=== PATIENT | female | born 1980 | race American Indian/Alaskan Native ===

== ENCOUNTER 2017-06-26 15:43 | Outpatient (CLI) | payer MEDICAID ==
[2017-06-26 15:59] LABS: BILIRUBIN,URINE NEGATIVE (NEGATIVE); GLUCOSE, URINE (UA) NEGATIVE (NEGATIVE); KETONES,URINE (UA) NEGATIVE (NEGATIVE); LEUKOCYTE ESTERASE, URINE NEGATIVE (NEGATIVE); NITRITE,URINE NEGATIVE (NEGATIVE); OCCULT BLOOD,URINE NEGATIVE (NEGATIVE); PH,URINE 6.5 PH (5.0-7.5); PROTEIN,URINE NEGATIVE (NEGATIVE); UROBILINOGEN,URINE 0.2 (NORMAL) E.U./dL (NORMAL)
[2017-06-26 16:01] LABS: BASOPHILS # (AUTO) 0.1 10^3/uL (0.0-0.1); BASOPHILS % (AUTO) 0.9 %; EOSINOPHILS # (AUTO) 0.1 10^3/uL (0.0-0.7); EOSINOPHILS % (AUTO) 1.3 %; HGB - HEMOGLOBIN 12.3 g/dL (12.0-16.0); LYMPHOCYTES # (AUTO) 2.1 10^3/uL (1.5-3.5); LYMPHOCYTES % (AUTO) 19.3 %; MEAN CORPUSCULAR HEMOGLOBIN 28.6 pg (27.0-31.0); MEAN CORPUSCULAR HGB CONC 33.4 g/dL (32.0-36.0); MEAN CORPUSCULAR VOLUME 85.8 fL (81.0-99.0); MEAN PLATELET VOLUME 7.1 fL (7.9-10.8); MONOCYTES # (AUTO) 0.7 10^3/uL (0.0-1.0); MONOCYTES % (AUTO) 6.7 %; NEUTROPHILS # (AUTO) 7.8 10^3/uL (1.5-6.6); NEUTROPHILS % (AUTO) 71.8 %; PLT - PLATELET COUNT 380 10^3/uL (130-450); RED BLOOD COUNT 4.31 10^6/uL (4.20-5.40); RED CELL DISTRIBUTION WIDTH 14.1 % (12.0-15.0); WHITE BLOOD COUNT 10.8 x10^3/uL (4.8-10.8)
[2017-06-26 16:03] LABS: CLARITY,URINE CLEAR (CLEAR)
[2017-06-26 16:06] LABS: BACTERIA,URINE Moderate /HPF (None Seen); RBC,URINE 0-5 /HPF (0-5); SQUAMOUS EPITHELIAL CELL,UR MOD Squamous (<= Few)
[2017-06-27 12:47] LABS: HIV AG/AB 4TH GEN NON-REACTIVE (NON-REACTIVE)
[2017-06-27 13:02] LABS: HEPATITIS C ANTIBODY NON-REACTIVE (NON-REACTIVE)
[2017-06-27 13:37] LABS: HEPATITIS B SURFACE ANTIGEN NON-REACTIVE (NON-REACTIVE)
== END 2017-06-26 15:44 | disposition home or self-care (01) ==
LOC: LAB 15:43
PROVIDERS: ATTEND Obstetrics & Gynecology
DX: Z36.9 Encounter for antenatal screening, unspecified (principal)
CPT/HCPCS: 36415; 81001; 81599; 85025; 86592; 86762; 86803; 86850; 86900; 86901; 87340; 87389

== ENCOUNTER 2017-07-04 07:12 | Outpatient (CLI) | payer MEDICAID ==
--- NOTE | 2017-07-04 15:17 | Ultrasound Report ---
OB ULTRASOUND: 07/04/2017 CLINICAL INDICATION: Late to care. TECHNIQUE: Real-time scanning was performed with freight representative static images obtained. LAST MENSTRUAL PERIOD: unknown Clinical Age: unknown US Age: 31 weeks 5 days EFW Hadlock: 1868 grams EFW% Hadlock: -- Heart Rate: 141 bpm EDC: unknown US EDC: 08/31/2017 BPD Hadlock: 31 weeks 6 days; Mean mm 79 HC Hadlock: 31 weeks 6 days; Mean mm 289 AC Hadlock: 32 weeks 4 days; Mean mm 285 FL Hadlock: 30 weeks 6 days; Mean mm 59 Presentation: cephalic. Placental Location: posterior. Cervical Length: 4.8 cm Amniotic Fluid: subjectively normal, MVP 4.6 cm FINDINGS There is a single viable intrauterine gestation, in cephalic presentation. heart rate is 141 BPM. The placenta is posterior, without evidence of previa. Amniotic fluid volume appears subjectively normal, with the deepest pocket of 4.6 cm. By size, the fetus measures 31 weeks 5 days (uncertain LMP). The following anatomic structures were visualized and appear normal: The intracranial contents, including the ventricles and posterior fossa; the lips and orbits; sagittal views of the spine; the heart, including 4 chamber view and right ventricular outflow tract, and diaphragm; the abdominal contents, including the stomach, the bilateral kidneys, and urinary bladder, as well as a normal 3 vessel cord insertion; 4 limbs. Imaging of the left ventricular outflow tract is limited by positioning and late dates. Transverse imaging of the spine is limited by positioning. 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 No free fluid or adnexal lesion is appreciated. IMPRESSION: SINGLE VIABLE INTRAUTERINE GESTATION, MEASURING 31 WEEKS 5 DAYS BY SIZE. SUBOPTIMAL VISUALIZATION OF THE LEFT VENTRICULAR OUTFLOW TRACT AND TRANSVERSE VIEWS OF THE SPINE, DUE TO LATE DATES AND POSITIONING. TD: 07/04/2017 12:32 TREVOR
== END 2017-07-04 07:13 | disposition home or self-care (01) ==
LOC: DI 07:12
PROVIDERS: ATTEND Obstetrics & Gynecology
DX: Z36.9 Encounter for antenatal screening, unspecified (principal)
CPT/HCPCS: 76811

== ENCOUNTER 2017-07-21 11:52 | Outpatient (CLI) | payer MEDICAID | END 2017-07-21 11:53 | disposition home or self-care (01) | LOC: LAB 11:52 | PROVIDERS: ATTEND Obstetrics & Gynecology | DX: Z36.9 Encounter for antenatal screening, unspecified (principal) | CPT/HCPCS: 36415 ==

== ENCOUNTER 2017-07-29 12:35 | Outpatient (CLI) | payer MEDICAID ==
--- NOTE | 2017-08-01 10:32 | Ultrasound Report ---
OB FOLLOWUP: 07/29/2017 CLINICAL INDICATION: Incomplete anatomy survey. COMPARISON: 07/04/2017 TECHNIQUE: Real-time scanning was performed with ambulatory service representative static images obtained. LAST MENSTRUAL PERIOD 11/24/2016 Clinical Age 35 weeks 2 days US Age 34 weeks 6 days EFW Hadlock 2394 g EFW% Hadlock 27% Heart Rate 141 bpm EDC 08/31/2017 US EDC 09/03/2017 BPD Hadlock 35 weeks 0 days; Mean mm 86.8 HC Hadlock 35 weeks 3 days; Mean mm 315.6 AC Hadlock 35 weeks 0 days; Mean mm 310.8 FL Hadlock 32 weeks 1 day; Mean mm 62.0 Presentation cephalic Placental Location posterior Cervical Length --- Amniotic Fluid 14.2 cm FINDINGS: There is a single viable intrauterine gestation, in cephalic presentation. heart rate is 141 BPM. The placenta is posterior, without evidence of previa. Amniotic fluid volume is normal, with an LENNOX of 14.2. By size, the fetus measures 34 weeks 6 days (35 weeks 2 days by previous office dating). Estimated weight by Hadlock method is 2394 grams. The left ventricular outflow tract and transverse views of the spine are well visualized, and appear normal. No free fluid or adnexal lesion is appreciated. IMPRESSION: SINGLE VIABLE INTRAUTERINE GESTATION, WITH EXPECTED GROWTH. UNREMARKABLE COMPLETION OF THE ANATOMIC SURVEY. MTDD
== END 2017-07-29 12:36 | disposition home or self-care (01) ==
LOC: DI 12:35
PROVIDERS: ATTEND Obstetrics & Gynecology
DX: Z36.2 Encounter for other antenatal screening follow-up (principal)
CPT/HCPCS: 76816

== ENCOUNTER 2017-07-31 08:00 | Outpatient (CLI) | payer MEDICAID | END 2017-07-31 23:59 | disposition home or self-care (01) | LOC: LAB.R 08:00 | PROVIDERS: ATTEND Obstetrics & Gynecology | DX: Z36.85 Encounter for antenatal screening for Streptococcus B (principal); Z3A.35 35 weeks gestation of pregnancy | CPT/HCPCS: 87081 ==

== ENCOUNTER 2017-07-31 13:40 | Outpatient (CLI) | payer MEDICAID ==
[2017-07-31 14:58] LABS: MEAN CORPUSCULAR HGB CONC 34.4 g/dL (32.0-36.0); MEAN CORPUSCULAR VOLUME 84.4 fL (81.0-99.0); MEAN PLATELET VOLUME 7.3 fL (7.9-10.8); RED BLOOD COUNT 4.13 10^6/uL (4.20-5.40); RED CELL DISTRIBUTION WIDTH 14.7 % (12.0-15.0)
[2017-07-31 15:26] LABS: HB2 TOTAL 13.1 g/dL; HEMOGLOBIN A1C 0.55 g/dL
== END 2017-07-31 13:41 | disposition home or self-care (01) ==
LOC: LAB 13:40
PROVIDERS: ATTEND Obstetrics & Gynecology
DX: Z36.9 Encounter for antenatal screening, unspecified (principal)
CPT/HCPCS: 36415; 82950; 83036

== ENCOUNTER 2017-08-13 05:10 | Outpatient (CLI) | payer MEDICAID ==
[2017-08-13 05:29] VITALS: BP 133/83
[2017-08-13 05:45] LABS: MUDS CUTOFF CONCENTRATIONS CUTOFF CONC BELOW:
[2017-08-13 05:48] LABS: BILIRUBIN,URINE NEGATIVE (NEGATIVE); GLUCOSE, URINE (UA) NEGATIVE (NEGATIVE); KETONES,URINE (UA) NEGATIVE (NEGATIVE); LEUKOCYTE ESTERASE, URINE NEGATIVE (NEGATIVE); NITRITE,URINE NEGATIVE (NEGATIVE); OCCULT BLOOD,URINE NEGATIVE (NEGATIVE); PROTEIN,URINE NEGATIVE (NEGATIVE); UROBILINOGEN,URINE 0.2 (NORMAL) E.U./dL (NORMAL)
[2017-08-13 05:59] LABS: AMPHETAMINE SCREEN,URINE NEGATIVE (NEGATIVE); BENZODIAZEPINES SCREEN, URINE NEGATIVE (NEGATIVE); COCAINE SCREEN URINE NEGATIVE (NEGATIVE); METHADONE SCREEN, URINE NEGATIVE (NEGATIVE); METHAMPHETAMINES SCREEN, URINE NEGATIVE (NEGATIVE); OPIATE SCREEN, URINE NEGATIVE (NEGATIVE); OXYCODONE SCREEN, URINE NEGATIVE (NEGATIVE); PROPOXYPHENE SCREEN, URINE NEGATIVE (NEGATIVE); TRICYCLIC ANTIDEPRESSANT,URINE NEGATIVE (NEGATIVE)
[2017-08-13 06:16] LABS: CLARITY,URINE CLEAR (CLEAR)
[2017-08-13 06:17] LABS: BACTERIA,URINE None Seen /HPF (None Seen); RBC,URINE 0-5 /HPF (0-5); SQUAMOUS EPITHELIAL CELL,UR MOD Squamous (<= Few)
== END 2017-08-13 06:55 | disposition home or self-care (01) ==
LOC: EMS 05:10 → FBP 05:11 → EMS 06:55
PROVIDERS: ATTEND Obstetrics & Gynecology
DX: O62.9 Abnormality of forces of labor, unspecified (principal); O34.219 Maternal care for unspecified type scar from previous cesarean delivery; N85.8 Other specified noninflammatory disorders of uterus; Z3A.37 37 weeks gestation of pregnancy
CPT/HCPCS: 80306; 81001; 87086; 99213

== ENCOUNTER 2017-08-25 13:34 | Outpatient (CLI) | payer MEDICAID ==
[2017-08-25 13:59] LABS: BASOPHILS # (AUTO) 0.1 10^3/uL (0.0-0.1); BASOPHILS % (AUTO) 0.9 %; EOSINOPHILS # (AUTO) 0.1 10^3/uL (0.0-0.7); EOSINOPHILS % (AUTO) 1.3 %; HGB - HEMOGLOBIN 12.4 g/dL (12.0-16.0); LYMPHOCYTES # (AUTO) 1.8 10^3/uL (1.5-3.5); LYMPHOCYTES % (AUTO) 20.4 %; MEAN CORPUSCULAR HEMOGLOBIN 29.1 pg (27.0-31.0); MEAN CORPUSCULAR HGB CONC 34.4 g/dL (32.0-36.0); MEAN CORPUSCULAR VOLUME 84.6 fL (81.0-99.0); MONOCYTES # (AUTO) 0.8 10^3/uL (0.0-1.0); MONOCYTES % (AUTO) 8.9 %; NEUTROPHILS # (AUTO) 5.9 10^3/uL (1.5-6.6); NEUTROPHILS % (AUTO) 68.5 %; PLT - PLATELET COUNT 277 10^3/uL (130-450); RED BLOOD COUNT 4.27 10^6/uL (4.20-5.40); RED CELL DISTRIBUTION WIDTH 15.3 % (12.0-15.0); WHITE BLOOD COUNT 8.6 x10^3/uL (4.8-10.8)
[2017-08-25 14:13] LABS: BILIRUBIN,URINE NEGATIVE (NEGATIVE); GLUCOSE, URINE (UA) NEGATIVE (NEGATIVE); KETONES,URINE (UA) NEGATIVE (NEGATIVE); LEUKOCYTE ESTERASE, URINE NEGATIVE (NEGATIVE); NITRITE,URINE NEGATIVE (NEGATIVE); OCCULT BLOOD,URINE NEGATIVE (NEGATIVE); PROTEIN,URINE NEGATIVE (NEGATIVE); UROBILINOGEN,URINE 0.2 (NORMAL) E.U./dL (NORMAL)
[2017-08-25 14:25] LABS: CLARITY,URINE CLEAR (CLEAR)
== END 2017-08-25 13:35 | disposition home or self-care (01) ==
LOC: LAB 13:34
PROVIDERS: ATTEND Obstetrics & Gynecology
DX: O34.219 Maternal care for unspecified type scar from previous cesarean delivery (principal)
CPT/HCPCS: 36415; 81003; 85025; 86850; 86900; 86901

== ENCOUNTER 2017-08-27 05:12 | Inpatient (IN) | payer MEDICAID ==
--- NOTE | 2017-08-25 13:50 | PREOP HISTORY & PHYSICAL ---
DATE OF SERVICE: 08/27/2017 Physician: Marquise Fisher MD DIAGNOSES 1. Gestation, 39 weeks. 2. Prior history of distress and resultant . 3. History of prior emergent section.Maternal Age 4. Advanced INTENDED PROCEDURE: Repeat section & bilateral tubal ligation / removal. HISTORY: The patient is a 37-year-old 10, para 7-0-2-7-6, who began care late at 30 weeks' gestation. Baseline ultrasound was on 07/04/2017 and compatible with 31 weeks 5 days' gestation, fixing the initial EDC at 08/31/2017. Within envelope of error, this corresponded with her LMP (11/09/2016), EDC of 08/16/2017. The patient's prior was delivered by emergent at [facility]. It was a resultant . BASELINE LABS: Blood type A positive, antibody screen negative. Mild anemia. CBC 10.8. RPR nonreactive. Rubella nonreactive. Hepatitis B surface antigen negative. HIV negative. Pap smear normal. HPV panel negative. GC, chlamydia negative. Glucola challenge test 134. [place] test negative for trisomy 21, 13, and 18. PAST MEDICAL HISTORY: The patient denies cardiovascular disease and past surgical history, other than a section and cholecystectomy. ALLERGIES: NONE. MEDICATIONS: vitamins with iron and supplemental iron. SOCIAL HISTORY: The patient is . Denies drug or alcohol use. Smokes approximately 1 pack per day, which she has tapered down to about 5 cigarettes a day. She does not follow a regular exercise or diet program. OCCUPATION: Unemployed. FAMILY HISTORY: Unknown. REVIEW OF SYSTEMS CONSTITUTIONAL: No recent illness, fatigues, fevers. HEENT: Negative. HEART: Negative. LUNGS: Negative. GI: Negative, other than mild constipation of . : Negative. MUSCULOSKELETAL: Negative. NEUROLOGIC: Negative. SKIN: Negative. PHYSICAL EXAMINATION GENERAL: Well groomed, bathed. VITAL SIGNS: Posted. HEENT: Poor dentition. NECK: Supple neck. No thyromegaly. LUNGS: Clear to auscultation. CARDIAC: Regular. No murmur, no gallop. ABDOMEN: No epigastric tenderness. Gravid uterus, appropriate size. heart tones heard. EXTERNAL GENITALIA: No lesions. VAGINA: No blood or discharge. CERVIX: 1 cm, slightly effaced. EXTREMITIES: Nonedematous. NEUROLOGIC: Grossly intact. Cranial nerves intact. Patellar reflexes 2+ and equal. SKIN: No open wounds noted. ASSESSMENT: The patient is a term , based on late ultrasound. Given her poor reproductive history, it is elected to perform section at 39 weeks instead of waiting for labor. Sterilization discussed in detail. She is aware of the permanent nature sterilization and the it is irreversible.. PLAN: Repeat lower segment transverse section with sterilization. Reviewed risks, benefits and alternatives. The patient is scheduled for next week. TD: 08/22/2017 20:36 [email or web address]
[2017-08-27] MEDS ORDERED: LACTATED RINGERS 1,000 ML IV ONE ×3 (05:42→08:06)
[2017-08-27] MEDS ORDERED: SODIUM CHLORIDE FLUSH 0.9% 10 ML SYRINGE ONE (05:43)
[2017-08-27] MEDS: LACTATED RINGERS 1,000 ML IV SCH ×3 (05:45→14:49)
[2017-08-27] MEDS ORDERED: ONDANSETRON 4 MG/2 ML VIAL IVP PRN (07:23)
[2017-08-27] MEDS ORDERED: SODIUM CHLORIDE FLUSH 0.9% 10 ML SYRINGE IVP PRN (07:23)
[2017-08-27] MEDS ORDERED: diphenhydrAMINE 25 MG CAPSULE PO PRN (07:23)
[2017-08-27] MEDS ORDERED: CITRIC ACID/SODIUM CITRATE 15 ML UDC PO ONE (07:34)
--- NOTE | 2017-08-27 07:34 | OPERATIVE REPORT ---
Operative Report - General Admit Date: 08/27/17 Pre-Op Diagnosis: 39 week plus gestation; planned repeat with tubal sterilization Procedure Performed: Repeat lower segment transverse section; bilateral tubal ligation via salpingectomy Post Op Diagnosis: Same - Procedure Note Primary Surgeon: Marquise Fisher MD Secondary Surgeon: Johanna Canales DO Anesthesia Provider: Brody Lin certified nurse buckle stapler Anesthesia Technique: Spinal Pathology: Tubes IV Fluids (mL): 700 Estimated Blood Loss (mL): 400 Urine Output (mL): 300 Drain/Tube Type: Other ([place] catheter) Complications: None
[2017-08-27] MEDS ORDERED: HYDROmorphone 1 MG/ML CARPUJECT IVP PRN (07:38)
--- NOTE | 2017-08-27 10:14 | OPERATIVE REPORT ---
DATE OF SERVICE: 08/27/2017 Physician: Marquise Fisher MD PREOPERATIVE DIAGNOSES 1. A 39-week gestation. 2. Prior sections. 3. Desires sterilization. 4. Late to care. POSTOPERATIVE DIAGNOSES 1. A 39-week gestation. 2. Prior sections. 3. Desires sterilization. 4. Late to care. 5. Nuchal cord x1. PLANNED PROCEDURES 1. Repeat lower segment transverse section. 2. Bilateral tubal ligation via salpingectomy. SURGEON: Marquise Fisher MD, FACOG PURCHASING OFFICER: Johanna Morillo DO, FACOG ANESTHESIA: Spinal. MILLING OPERATOR: Brody Lin, certified nurse zinc skimmer COMPLICATIONS: None. ESTIMATED BLOOD LOSS: 400 INTRAVENOUS FLUIDS: 700 URINE: 300 mL, clear. Bahena in place. FINDINGS: Living male infant was born weighing 7 lbs 4oz scoring Apgars of 9/9. There was a nuchal cord x1, which was not a factor in the delivery. There were no obvious congenital anomalies and responded well to stimulation. Tubes and ovaries appeared to be normal. The uterus had no fibroids or malformations. Placenta was expressed intact with 3-vessel cord. Clear, nonfoul amniotic fluid noted. TECHNIQUE: Prior to the surgery, I met the patient and her and reviewed the mechanics, risks and benefits. I also confirmed that they desired a tubal ligation and realized that it was irreversible. They strongly wanted repeat section with tubal ligation. [place] Medicaid tubal consent paperwork was signed. The patient came to the OR and was placed in the sitting position for spinal anesthetic. Spinal was uneventfully instilled. She was moved to supine. She was prepped and draped in a customary sterile fashion. Timeout procedure was done per protocol. The abdominal wall was uneventfully opened with a Pfannenstiel incision. Curvilinear hysterotomy was cut in the lower segment. On entry into the cavity, clear fluid spilled forth. Hot Mill Roller secured head with his right hand and with fundal pressure by banking assistant , the head was guided through the hysterotomy and laparotomy wound. Shoulder was delivered without difficulty. A nuchal cord was reduced. Oropharynx was thoroughly suctioned. Cord was doubly clamped and transected. Infant was brought to the warmer. The uterus was exteriorized. With fundal massage, the placenta was removed intact. Hysterotomy was closed in 2 layers with running sutures of 0 Vicryl. Abdominal cavity was doubly lavaged with warm normal saline. The tubes were then mobilized and tented away from the uterine body. Using LigaSure, the mesenteric tubal vessels were desiccated and divided. Both tubes were removed intact. We observed and there were no bleeding problems. The uterus was then placed back into the amniotic in the abdominal cavity. All wounds were inspected and found to be hemostatically secure. Abdominal peritoneum was closed with running stitch of 2-0 chromic. Rectus muscles were brought back into the midline with interrupted sutures of 0 Vicryl. The fascia was closed with a running suture of 0 Vicryl. Two small reinforcing stitches of 2-0 Vicryl were placed. Subcutaneous tissue was closed with interrupted sutures of 2-0 chromic. Skin was closed with Monocryl in a subcuticular stitch and then dressed with Dermabond. All sponge, needle and instrument counts were confirmed as correct. The patient was uneventfully aroused and taken to recovery room in stable condition. TD: 08/27/2017 10:12 TREVOR
[2017-08-27] MEDS: HYDROcod/ACETAM 5/325 MG TABLET PO PRN ×3 (10:31→18:17)
[2017-08-27] MEDS ORDERED: NALBUPHINE 20 MG/ML AMP IVP PRN (11:00)
[2017-08-27] MEDS ORDERED: MORPHINE 2 MG/ML CARPUJECT IVP PRN (11:00)
[2017-08-27] MEDS ORDERED: NALOXONE 0.4 MG/ML VIAL IVP PRN (11:00)
[2017-08-27] MEDS ORDERED: diphenhydrAMINE INJ 50 MG/ML VIAL IVP PRN (11:00)
[2017-08-27] MEDS: DOCUSATE SODIUM 250 MG CAPSULE PO SCH ×2 (12:13→14:53)
[2017-08-27] MEDS: IBUPROFEN 600 MG TABLET PO SCH ×2 (14:23→21:22)
[2017-08-27] MEDS: ceFAZolin 2 GM in SODIUM CHLORIDE 0.9% MINIBAG 100 ML IV SCH (14:51)
[2017-08-27] MEDS: SODIUM CHLORIDE FLUSH 0.9% 10 ML SYRINGE IVP SCH (14:54)
[2017-08-27] MEDS ORDERED: MORPHINE 2 MG/ML SYRINGE IVP PRN (15:44)
[2017-08-27] MEDS ORDERED: NALBUPHINE 20 MG/ML AMP IM PRN (20:24)
[2017-08-28] MEDS: HYDROcod/ACETAM 5/325 MG TABLET PO PRN ×6 (00:04→23:26)
[2017-08-28] MEDS: IBUPROFEN 600 MG TABLET PO SCH ×3 (06:02→19:36)
--- NOTE | 2017-08-28 07:56 | PROVIDER PROGRESS NOTE ---
Subjective - General Admit Date: 08/27/17 Procedure Date: 08/27/17 Post Op Days: 1 Procedure Performed: Repeat section with bilateral salpingectomy - Review of Systems Wound/Incisions: positive: Dressing dry and intact, No drainage General: positive: No symptoms HEENT: positive: No symptoms Pulmonary: positive: No symptoms Cardiovascular: positive: No symptoms Gastrointestinal: positive: No symptoms Genitourinary: positive: Other (Mild lochia rubra non-foul) Musculoskeletal: positive: No symptoms Skin: positive: No symptoms Psychiatric: positive: No symptoms Objective - Patient Data Vital Signs: Vital Signs x48h Temp Pulse Resp BP Pulse Ox 08/28/17 05:30 98.2 F 71 16 110/52 L 95 08/28/17 00:00 98.8 F 71 16 119/66 97 Weight: Weight 08/26/17 08/27/17 08/28/17 23:59 23:59 23:59 Weight (kg) 92.079 kg Intake & Output: Intake and Output Totals x24h 08/26/17 08/27/17 08/28/17 23:59 23:59 23:59 Intake Total 3600 450 Output Total 1700 650 Balance 1900 -200 - Current Medications Current Medications: Current Medications Generic Name Dose Route Start Last Admin Trade Name Freq PRN Reason Stop Dose Admin Acetaminophen/Hydrocodone Bitart 1 tab 08/27/17 07:27 08/28/17 06:02 [place] 5/325 PO 1 tab Q4HR PRN Administration PAIN Diphenhydramine HCl 25 mg 08/27/17 07:23 08/27/17 10:35 Benadryl PO 25 mg Q6H PRN Administration ITCHING Docusate Sodium 250 mg 08/27/17 08:00 08/27/17 14:53 Colace 250mg Capsule PO Not Given DAILY BRIDGER Cefazolin Sodium 2 gm/ Sodium 100 mls @ 200 mls/hr 08/27/17 06:00 08/27/17 14 :51 Chloride IV Not Given Q8H BRIDGER Lactated Ringer's 1,000 mls @ 100 mls/hr 08/27/17 08:00 08/27/17 14:49 Lr IV Not Given .Q10H BRIDGER Ibuprofen 600 mg 08/27/17 12:00 08/28/17 06:02 Motrin PO 600 mg Q6HR BRIDGER Administration Nalbuphine HCl 5 mg 08/27/17 20:24 08/27/17 20:32 Nubain IM 5 mg Q3HR PRN Administration PRURITIS Ondansetron HCl 4 mg 08/27/17 07:23 08/27/17 14:34 Zofran Inj IVP 4 mg Q4H PRN Administration Nausea / Vomiting Sodium Chloride 10 ml 08/27/17 09:00 08/27/17 14:54 Normal Saline Flush 0.9% IVP Not Given 0100,0900,1700 [facility] Physical Exam - Physical Exam General: positive: No acute distress HEENT: positive: Moist mucous membranes Neck: positive: Supple w/out meningeal sx Cardiac: positive: Regular Rate, Regular Rhythm Resipratory: positive: Clear to ausultation cole Abdomen: positive: Normal Bowel sounds, Other (Wound clean dry and intact) Female : positive: Enlarged uterus (17 week size nontender firm) Skin: positive: Warm and dry Neurologic: positive: Alert and Oriented X 3, Normal Sensation, Normal Speech Assessment/Plan - Assessment/Plan Assessment: [employer] .Patient recovering well from section and is hemodynamically stable. Postop CBC is pending. She originally wanted medication to stop breast feeding and . This was mostly a matter of convenience. I explained to her the benefits of breast-feeding versus the potential side effects of the Prolactin inhibition medications she now prefers to breast-feed
[2017-08-28] MEDS ORDERED: ePHEDrine 50 MG/ML VIAL IVP ONE (08:11)
[2017-08-28] MEDS ORDERED: ONDANSETRON 4 MG/2 ML VIAL IVP ONE (08:11)
[2017-08-28] MEDS ORDERED: KETOROLAC 30 MG/ML VIAL IVP ONE (08:11)
[2017-08-28] MEDS ORDERED: ACETAMINOPHEN 1,000 MG/100 ML 100 ML IV ONE (08:11)
[2017-08-28] MEDS ORDERED: ceFAZolin 1 GM VIAL IV ONE (08:11)
[2017-08-28 09:35] LABS: BASOPHILS # (AUTO) 0.1 10^3/uL (0.0-0.1); EOSINOPHILS # (AUTO) 0.1 10^3/uL (0.0-0.7); EOSINOPHILS % (AUTO) 1.3 %; HGB - HEMOGLOBIN 10.8 g/dL (12.0-16.0); LYMPHOCYTES % (AUTO) 19.5 %; MEAN CORPUSCULAR HEMOGLOBIN 28.8 pg (27.0-31.0); MEAN CORPUSCULAR HGB CONC 33.9 g/dL (32.0-36.0); MEAN CORPUSCULAR VOLUME 84.9 fL (81.0-99.0); MEAN PLATELET VOLUME 7.4 fL (7.9-10.8); MONOCYTES # (AUTO) 0.8 10^3/uL (0.0-1.0); MONOCYTES % (AUTO) 8.3 %; NEUTROPHILS % (AUTO) 69.9 %; PLT - PLATELET COUNT 242 10^3/uL (130-450); RED BLOOD COUNT 3.76 10^6/uL (4.20-5.40); RED CELL DISTRIBUTION WIDTH 15.4 % (12.0-15.0)
[2017-08-28] MEDS: DOCUSATE SODIUM 250 MG CAPSULE PO SCH (09:42)
[2017-08-28] MEDS: LACTATED RINGERS 1,000 ML IV SCH (19:58)
[2017-08-28] MEDS: SODIUM CHLORIDE FLUSH 0.9% 10 ML SYRINGE IVP SCH (19:59)
[2017-08-28] MEDS: ceFAZolin 2 GM in SODIUM CHLORIDE 0.9% MINIBAG 100 ML IV SCH (20:02)
[2017-08-29] MEDS: IBUPROFEN 600 MG TABLET PO SCH ×2 (01:30→09:03)
[2017-08-29] MEDS: HYDROcod/ACETAM 5/325 MG TABLET PO PRN ×2 (06:01→11:54)
[2017-08-29 08:25] VITALS: BP 130/59
[2017-08-29] MEDS: DOCUSATE SODIUM 250 MG CAPSULE PO SCH (09:03)
--- NOTE | 2017-08-29 10:19 | Discharge Plan ---
Discharge Plan Disposition: 01 Home, Self Care Condition: Good Diet: Regular Activity Restrictions: Activity as Tolerated Shower Restrictions: No Driving Restrictions: No (no driving w narcotics) Weight Bearing: Full Weight No Smoking: If you smoke, Please STOP! Call for help. Follow-up with: Coby Webber ARNP [Primary Care Provider] - Marquise Fisher MD [Provider Admit Priv/Credential] -
--- NOTE | 2017-08-29 10:59 | DISCHARGE SUMMARY ---
Physician: Marquise Fisher MD DATE OF ADMISSION: 08/27/2017 DATE OF DISCHARGE: 08/29/2017 DIAGNOSES 1. A 39-week gestation, not in labor. 2. Prior section secondary to distress and resultant . 3. Advanced maternal age. 4. Intends sterilization. PROCEDURE: Repeat lower segment transverse section with bilateral tubal ligation via salpingectomy. (Dr. Fisher) COMPLICATIONS: None. HISTORY: The patient is a 37-year-old, , 10, para 7-0-2-7-6 woman who began care late at 30 weeks' gestation dating was done by a baseline ultrasound at 31 weeks, 5 days. This corresponded with her LMP setting. EDC at 08/16/2017. Reference typewritten H and P. The patient received counseling concerning a tubal ligation on 2 separate occasions and strongly desires the same. [place] Medicaid paperwork was completed and signed. On the , the patient underwent an uneventful section to produce a living male infant weighing 7 pounds 3.5 grams, scoring Apgars of 9/9. Infant did well and had no obvious trauma or congenital anomalies. Tubal ligation was uneventfully accomplished. The patient went to the recovery room in good condition. Patient rapidly advanced to full diet and activity. Initially she desired inhibition drugs. After discussing side effects, she declined. She was ambivalent about , and by postop day 2 decided not to. Infant had good weight gain and bottle fed well. The patient's postop hemoglobin was 10.8. She did very well, tolerating activity and diet. By postop day 2, she strongly desired discharge. She was given complete wound care and callback warning signs and instructions. She will see us in 1 week for wound check. DISCHARGE MEDICATIONS 1. Motrin 600 q.6 hours. 2. Ethel 5/325 one q.4 hours p.r.n. breakthrough pain (12 only dispensed). 3. Colace 250 mg b.i.d. TD: 08/29/2017 10:59 [facility]
[2017-08-29] MEDS ORDERED: MEASLES,MUMPS & RUBELLA VACC 0.5 ML VIAL SUBQ ONE (11:59)
== END 2017-08-29 12:30 | disposition home or self-care (01) | DRG 766 ==
LOC: FBP 05:12
PROVIDERS: ADMIT Obstetrics & Gynecology; ATTEND Obstetrics & Gynecology
PROC: 0UT70ZZ Resection of Bilateral Fallopian Tubes, Open Approach (ICD-10-PCS; 2017-08-27)
PROC: 10D00Z1 Extraction of Products of Conception, Low, Open Approach (ICD-10-PCS; principal; 2017-08-27 07:30)
DX: O34.219 Maternal care for unspecified type scar from previous cesarean delivery (principal); O99.334 Smoking (tobacco) complicating childbirth; F17.210 Nicotine dependence, cigarettes, uncomplicated; Z37.0 Single live birth; Z30.2 Encounter for sterilization; Z87.59 Personal history of other complications of pregnancy, childbirth and the puerperium
CPT/HCPCS: 36415; 85025

== ENCOUNTER 2017-09-24 15:04 | Emergency (ER) | payer MEDICAID ==
[2017-09-24 16:02] VITALS: BP 115/71
--- NOTE | 2017-09-24 16:17 | ED Physician Documentation ---
History of Present Illness - Stated complaint Stated Complaint: SOA/BACK-CHEST PX/ABD PX ON STITCHES - Chief complaint Chief Complaint: General - History obtained from History obtained from: Patient - History of Present Illness Timing: Other (She is 1 month post . She had a . She has been sick for 8 days with productive cough, shortness of breath, and fevers. 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 - Present Medications Home Medications: Ambulatory Orders Medication Instructions Recorded Confirmed Albuterol Sulfate [Proventil Hfa 1 - 2 puffs IH Q4H PRN #1 09/24/17 Inhaler] hfa.[email or web address] Doxycycline Hyclate 100 mg PO BID #14 tablet 09/24/17 guaiFENesin/CODEINE [Robitussin AC] 5 - 10 ml PO Q6H PRN #120 ml 09/24/17 predniSONE [Deltasone] 60 mg PO DAILY 5 Days tablet 09/24/17 - Allergies Allergies/Adverse Reactions: Allergies Allergy/AdvReac Type Severity Reaction Status Date / Time No Known Drug Allergies Allergy Verified 09/24/17 15:18 - Social History Does the pt smoke?: Yes Smoking Status: Current every day smoker Does the pt drink ETOH?: Yes Does the pt have substance abuse?: No - Immunizations Immunizations are current?: Yes PD ED PE NORMAL - Vitals Vital signs reviewed: Yes - General General: Alert and oriented X 3, No acute distress - HEENT HEENT: PERRL, EOMI, Ears normal, Moist mucous membranes, Pharynx benign - Neck Neck: Supple, no meningeal sign, No bony TTP - Cardiac Cardiac: RRR, No murmur - Respiratory Respiratory: No respiratory distress, Other (Diffusely wheezy) - Abdomen Abdomen: Soft, Non tender, Other (Pfannenstiel incision is clean dry and intact) - Back Back: No CVA TTP, No spinal TTP - Extremities Extremities: No edema, No calf tenderness / cord - Neuro Neuro: Alert and oriented X 3, Normal speech - Psych Psych: Normal mood, Normal affect Results - Vitals Vitals: Vital Signs - 24 hr 09/24/17 09/24/17 15:14 16:00 Temperature 36.5 C Heart Rate 85 74 Respiratory 21 18 Rate Blood Pressure 125/74 115/71 O2 Saturation 98 97 Oxygen O2 Source Room air - EKG (time done) 1510 Rate: Rate (enter#) (90) Rhythm: NSR Williamson: Normal Intervals: Normal OR QRS: Normal Ischemia: Normal ST segments Computer interpretation: Agree with computer PD MEDICAL DECISION MAKING - ED course ED course: 37-year-old woman with clinical bronchitis, shortly and smokes. She was advised to quit smoking. Departure - Departure Disposition: 01 Home, Self Care Clinical Impression: Bronchitis Condition: Good Record reviewed to determine appropriate education?: Yes Instructions: ED Bronchitis Asthmatic, ED Smoking Cessation Prescriptions: Albuterol Sulfate [Proventil Hfa Inhaler] 1 - 2 puffs IH Q4H PRN #1 hfa.[email or web address] PRN Reason: Cough Doxycycline Hyclate 100 mg PO BID #14 tablet guaiFENesin/CODEINE [Robitussin AC] 5 - 10 ml PO Q6H PRN #120 ml PRN Reason: Cough predniSONE [Deltasone] 60 mg PO DAILY 5 Days tablet Comments: Call your doctor to arrange a follow-up appointment, make the next available appointment. In the interim, return anytime if worse or if new symptoms develop. Do not drink or drive while taking narcotic pain medication. Note that many narcotic pain relievers also contain Tylenol/acetaminophen. Please ensure that your total dose of acetaminophen from all sources does not exceed 3 g (3000 mg) per day. You may get constipated while on this medication. Take a stool softener such as Colace twice a day while you are on it. Also add an [id number] laxative such as senna or MiraLAX on any day that you do not have a bowel movement. If you received a narcotic pain medication or sedative while in the emergency department, do not drive for the next 24 hours.
== END 2017-09-24 16:32 | disposition home or self-care (01) ==
LOC: ED 15:04
DX: O99.53 Diseases of the respiratory system complicating the puerperium (principal); J40 Bronchitis, not specified as acute or chronic; O99.335 Smoking (tobacco) complicating the puerperium
CPT/HCPCS: 93005; 99283

== ENCOUNTER 2019-04-15 15:51 | Emergency (ER) | payer SELFPAY ==
[2019-04-15] MEDS ORDERED: KETOROLAC 30 MG/ML VIAL IVP STA (16:44)
[2019-04-15] MEDS ORDERED: SODIUM CHLORIDE 0.9% 1,000 ML IV ONE (16:44)
--- NOTE | 2019-04-15 16:45 | ED Physician Documentation ---
PD HPI ABD PAIN - Stated complaint Stated Complaint: FEVER, VOMITTING, ABD PX - Chief complaint Chief Complaint: Abd Pain - History obtained from History obtained from: Patient - History of Present Illness Timing - onset: Other (She became fairly suddenly and acutely ill today with diffuse and generalized abdominal pain associated with 4 episodes of vomiting. No urinary complaints or changes in bowel movements. She had a tactile fever. Remote history of , cholecystectomy, and tubal ligation.) Review of Systems Ten Systems: 10 systems reviewed and negative Constitutional: reports: Fever, Chills, Myalgias, Fatigue Nose: denies: Rhinorrhea / runny nose Throat: denies: Sore throat GI: reports: Abdominal Pain, Nausea, Vomiting. 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 - Present Medications Home Medications: Ambulatory Orders Medication Instructions Recorded Confirmed Albuterol Sulfate [Proventil Hfa 1 - 2 puffs IH Q4H PRN #1 09/24/17 Inhaler] hfa.[email or web address] Doxycycline Hyclate 100 mg PO BID #14 tablet 09/24/17 guaiFENesin/CODEINE [Robitussin AC] 5 - 10 ml PO Q6H PRN #120 ml 09/24/17 predniSONE [Deltasone] 60 mg PO DAILY 5 Days tablet 09/24/17 Cefdinir 300 mg PO BID #20 capsule 04/15/19 Ondansetron Odt [Zofran] 4 mg TL Q6H PRN #10 tablet 04/15/19 - Allergies Allergies/Adverse Reactions: Allergies Allergy/AdvReac Type Severity Reaction Status Date / Time No Known Drug Allergies Allergy Verified 09/24/17 15:18 - Social History Does the pt smoke?: Yes Smoking Status: Current every day smoker Does the pt drink ETOH?: Yes Does the pt have substance abuse?: No - Immunizations Immunizations are current?: Yes PD ED PE NORMAL - Vitals Vital signs reviewed: Yes - General General: Alert and oriented X 3, No acute distress - HEENT HEENT: PERRL, EOMI - Neck Neck: Supple, no meningeal sign, No bony TTP - Cardiac Cardiac: RRR, No murmur - Respiratory Respiratory: No respiratory distress, Clear bilaterally - Abdomen Abdomen: Normal bowel sounds, Soft, Non tender - Back Back: No CVA TTP, No spinal TTP - Derm Derm: Normal color, Warm and dry - Extremities Extremities: No edema, No calf tenderness / cord - Neuro Neuro: Alert and oriented X 3, Normal speech Results - Vitals Vitals: Vital Signs - 24 hr 04/15/19 16:09 Temperature 37.2 C Heart Rate 74 Respiratory 18 Rate Blood Pressure 145/104 H O2 Saturation 95 Oxygen O2 Source Room air - Labs Labs: Laboratory Tests 04/15/19 04/15/19 04/15/19 16:40 17:00 17:00 WBC 7.7 RBC 4.86 Hgb 13.9 Hct 41.8 MCV 86.0 MCH 28.6 MCHC 33.3 RDW 13.2 Plt Count 395 MPV 9.0 Neut # (Auto) 4.4 Lymph # (Auto) 2.5 [place] # (Auto) 0.5 Eos # (Auto) 0.1 Baso # (Auto) 0.1 Absolute Nucleated RBC 0.00 Nucleated RBC % 0.0 Sodium 139 Potassium 4.0 Chloride 103 Carbon Dioxide 26 Anion Gap 10.0 BUN 8 Creatinine 0.6 Estimated GFR (MDRD) 111 Glucose 101 H Calcium 8.8 Total Bilirubin 0.7 AST 20 ALT 23 Alkaline Phosphatase 87 Total Protein 7.9 Albumin 4.4 Globulin 3.5 Albumin/Globulin Ratio 1.3 Lipase 26 Urine Color YELLOW Urine Clarity HAZY Urine pH 6.0 Ur Specific [place] 1.015 Urine Protein NEGATIVE Urine Glucose (UA) NEGATIVE Urine Ketones NEGATIVE Urine Occult Blood TRACE-LYSE Urine Nitrite NEGATIVE Urine Bilirubin NEGATIVE Urine Urobilinogen 0.2 (NORMAL) Ur Leukocyte Esterase SMALL H Urine RBC 0-5 Urine WBC 11-25 H Ur Squamous Epith Cells MANY Squamous H Urine Bacteria Few Urine Mucus Few Strands Ur Microscopic Review INDICATED Urine Culture Comments NOT INDICATED Urine HCG, Qual NEGATIVE PD MEDICAL DECISION MAKING - ED course ED course: 38-year-old woman presents with abdominal pain, vomiting, tactile fever. Only positive finding was a UTI which is treated with Rocephin. Departure - Departure Disposition: 01 Home, Self Care Clinical Impression: Pyelonephritis Condition: Good Record reviewed to determine appropriate education?: Yes Instructions: ED Kidney Infec Female Prescriptions: Cefdinir 300 mg PO BID #20 capsule Ondansetron Odt [Zofran] 4 mg TL Q6H PRN #10 tablet PRN Reason: Nausea / Vomiting Comments: We will culture your urine, the results should be done in 48-72 hours. If an antibiotic change is necessary we will call you. Return if worse in the meantime, especially if you develop increasing flank pain, fevers, or cannot keep down the medication. Your blood pressure was elevated today on check into the emergency department. This does not mean that you have hypertension, it is a common phenomenon to come to the emergency department and have elevated blood pressure. I recommend that you see your primary care physician within the week to have it rechecked when you are feeling better.
[2019-04-15] MEDS: ONDANSETRON 4 MG/2 ML VIAL IVP STA (17:00)
[2019-04-15 17:04] LABS: BILIRUBIN,URINE NEGATIVE (NEGATIVE); GLUCOSE, URINE (UA) NEGATIVE (NEGATIVE); KETONES,URINE (UA) NEGATIVE (NEGATIVE); LEUKOCYTE ESTERASE, URINE SMALL (NEGATIVE); NITRITE,URINE NEGATIVE (NEGATIVE); OCCULT BLOOD,URINE TRACE-LYSE (NEGATIVE); PROTEIN,URINE NEGATIVE (NEGATIVE); UROBILINOGEN,URINE 0.2 (NORMAL) E.U./dL (NORMAL)
[2019-04-15 17:06] LABS: BASOPHILS # (AUTO) 0.1 10^3/uL (0.0-0.1); BASOPHILS % (AUTO) 1.2 %; EOSINOPHILS # (AUTO) 0.1 10^3/uL (0.0-0.7); EOSINOPHILS % (AUTO) 1.8 %; HGB - HEMOGLOBIN 13.9 g/dL (12.0-16.0); LYMPHOCYTES # (AUTO) 2.5 10^3/uL (1.5-3.5); LYMPHOCYTES % (AUTO) 32.8 %; MEAN CORPUSCULAR HEMOGLOBIN 28.6 pg (27.0-31.0); MEAN CORPUSCULAR HGB CONC 33.3 g/dL (32.0-36.0); MONOCYTES # (AUTO) 0.5 10^3/uL (0.0-1.0); MONOCYTES % (AUTO) 6.4 %; NEUTROPHILS # (AUTO) 4.4 10^3/uL (1.5-6.6); NEUTROPHILS % (AUTO) 57.5 %; PLT - PLATELET COUNT 395 10^3/uL (130-450); RED BLOOD COUNT 4.86 10^6/uL (4.20-5.40); RED CELL DISTRIBUTION WIDTH 13.2 % (12.0-15.0); WHITE BLOOD COUNT 7.7 x10^3/uL (4.8-10.8)
[2019-04-15 17:07] LABS: CLARITY,URINE HAZY (CLEAR); HCG UR QUAL NEGATIVE
[2019-04-15 17:19] LABS: ALBUMIN 4.4 g/dL (3.2-5.5); ALBUMIN/GLOBULIN RATIO 1.3 (1.0-2.2); BILIRUBIN,TOTAL 0.7 mg/dL (0.2-1.0); CALCIUM 8.8 mg/dL (8.5-10.3); CREATININE 0.6 mg/dL (0.4-1.0); TOTAL PROTEIN 7.9 g/dL (6.7-8.2)
[2019-04-15 17:20] LABS: BACTERIA,URINE Few /HPF (None Seen); RBC,URINE 0-5 /HPF (0-5); SQUAMOUS EPITHELIAL CELL,UR MANY Squamous (<= Few)
[2019-04-15 17:21] LABS: MUCUS,URINE Few Strands
[2019-04-15] MEDS ORDERED: cefTRIAXone 1 GM in SODIUM CHLORIDE 0.9% MINIBAG 100 ML IV STA (17:40)
[2019-04-15 17:52] VITALS: BP 117/53
== END 2019-04-15 18:06 | disposition home or self-care (01) ==
LOC: ED 15:51
DX: N12 Tubulo-interstitial nephritis, not specified as acute or chronic (principal); R03.0 Elevated blood-pressure reading, without diagnosis of hypertension; Z90.49 Acquired absence of other specified parts of digestive tract; F17.200 Nicotine dependence, unspecified, uncomplicated
CPT/HCPCS: 36415; 80053; 81001; 81003; 81025; 83690; 85025; 87086; 96361; 96365; 96375; 99284

== ENCOUNTER 2019-11-24 15:21 | Emergency (ER) | payer MEDICAID ==
[2019-11-24 15:35] VITALS: BP 144/83
--- NOTE | 2019-11-24 15:40 | ED Physician Documentation ---
PD HPI HEENT - Stated complaint Stated Complaint: BILAT EAR PX - Chief complaint Chief Complaint: Heent - History obtained from History obtained from: Patient - History of Present Illness Timing - onset: How many days ago (4) Timing - duration: Days (4) Timing - details: Gradual onset, Still present Location: Left ear Improves: Medication Associated symptoms: Headache. No: Fever, Congestion, Rhinorrhea, Trismus, Unable to swallow, Swollen nodes, Facial swelling, Cough Similar symptoms before: Diagnosis (swimmers eara) Recently seen: Not recently seen - Additional information Additional information: Previously well 39-year-old female has gone swimming over the weekend and she has now developed pain in both of her ears. The pain is much worse in the left ear and she felt that it might get better but it is gotten much worse and she is come in today unable to relieve the pain with ibuprofen or Tylenol. She denies any cough or congestion she does have pain to her ears to the touch. Review of Systems Constitutional: denies: Fever, Chills, Myalgias, Fatigue Eyes: denies: Decreased vision Ears: reports: Ear pain. 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 - Present Medications Home Medications: Ambulatory Orders Medication Instructions Recorded Confirmed Albuterol Sulfate [Proventil Hfa 1 - 2 puffs IH Q4H PRN #1 09/24/17 Inhaler] [email or web address] Doxycycline Hyclate 100 mg PO BID #14 tablet 09/24/17 guaiFENesin/CODEINE [Robitussin AC] 5 - 10 ml PO Q6H PRN #120 ml 09/24/17 predniSONE [Deltasone] 60 mg PO DAILY 5 Days tablet 09/24/17 Cefdinir 300 mg PO BID #20 capsule 04/15/19 Ondansetron Odt [Zofran] 4 mg TL Q6H PRN #10 tablet 04/15/19 Neomycin/Polymyx/Hc Otic Drops 4 drops EACHEAR QID #1 bottle 11/24/19 [Cortisporin Ear Susp] - Allergies Allergies/Adverse Reactions: Allergies Allergy/AdvReac Type Severity Reaction Status Date / Time No Known Drug Allergies Allergy Verified 11/24/19 15:35 - Social History Does the pt smoke?: Yes Smoking Status: Current every day smoker Does the pt drink ETOH?: Yes Does the pt have substance abuse?: No - Immunizations Immunizations are current?: Yes PD ED PE NORMAL - Vitals Vital signs reviewed: Yes (hypertensive ) - General General: Alert and oriented X 3, Well developed/nourished, Other (Patient appears to be in pain with futures trader tone and flattened affect) - HEENT HEENT: Atraumatic, PERRL, EOMI, Other (There is tenderness to pull on the tragus and push on the pinna there is erythema to the canal bilaterally worse on the left than the right and there is cerumen obscuring the TMs bilaterally.) - Neck Neck: Supple, no meningeal sign, No bony TTP - Cardiac Cardiac: RRR, No murmur - Respiratory Respiratory: No respiratory distress, Clear bilaterally - Abdomen Abdomen: Soft, Non tender - Back Back: No CVA TTP, No spinal TTP - Derm Derm: Normal color, Warm and dry, No rash - Extremities Extremities: No deformity, No edema, No calf tenderness / cord - Neuro Neuro: Alert and oriented X 3, rn hemodialysis charge 2-12 intact, No motor deficit, No sensory deficit, Normal speech Eye Opening: Spontaneous Motor: Obeys Commands Verbal: Oriented GCS Score: 15 - Psych Psych: Normal mood, Normal affect Results - Vitals Vitals: Vital Signs - 24 hr 11/24/19 15:26 Temperature 36.6 C Heart Rate 81 Respiratory 16 Rate Blood Pressure 144/83 H O2 Saturation 95 Oxygen O2 Source Room air PD MEDICAL DECISION MAKING - ED course Complexity details: considered differential, d/w patient ED course: 39-year-old female with acute ear pain that looks severe has swimmer's ear and I have discussed with her the usual treatment of this to include the use of eardrops and the expected course to be resolution in 4 to 5 days. She does have acute pain now and appears very uncomfortable. She is prescribed a short course of tramadol. Departure - Departure Disposition: 01 Home, Self Care Clinical Impression: Otitis externa Qualifiers: Otitis externa type: swimmer's ear Chronicity: acute Laterality: bilateral Q ualified Code(s): H60.333 - Swimmer's ear, bilateral Condition: Stable Instructions: ED Otitis Externa Follow-Up: [facility] [Provider Group] Prescriptions: Neomycin/Polymyx/Hc Otic Drops [Cortisporin Ear Susp] 4 drops EACHEAR QID #1 bottle
== END 2019-11-24 15:47 | disposition home or self-care (01) ==
LOC: ED 15:21
DX: H60.333 Swimmer's ear, bilateral (principal); F17.200 Nicotine dependence, unspecified, uncomplicated
CPT/HCPCS: 99282

== ENCOUNTER 2019-12-14 10:45 | Emergency (ER) | payer MEDICAID ==
[2019-12-14 12:01] LABS: RAPID STREP SCREEN Negative (Negative)
--- NOTE | 2019-12-14 12:14 | ED Physician Documentation ---
History of Present Illness - Stated complaint Stated Complaint: SORE THROAT, BILAT EAR PX - Chief complaint Chief Complaint: Heent - History obtained from History obtained from: Patient - History of Present Illness Timing: Prior to arrival, How many days ago Pain level max: 5 - Additonal information Additional information: 39-year-old female presents to the emergency department with chief complaint of bilateral ear pain and a sore throat. Symptoms began about 4 to 5 days ago with acute onset right ear pain that then transition to bilateral ear pain. She is also had a sore throat for about 3 days. She denies any fevers no cough or congestion. Patient is taking Tylenol and ibuprofen with some relief of pain. She reports that 1 of her upper molars is tender but she has no trismus mouth swelling or facial swelling. She has no trismus, she has no dysphonia, swallowing normally. Her was seen in the emergency department this morning with cough. He was diagnosed with asthmatic bronchitis. Patient states that she has had ear infections her entire life. Has not recently been swimming. Denies diabetes. Has no ear drainage Review of Systems Constitutional: denies: Fever Ears: reports: Ear pain. denies: Loss of hearing, Drainage/discharge, Tinnitus /ringing, Foreign body Nose: denies: Rhinorrhea / runny nose, Congestion, Epistaxis Throat: reports: Dental pain / toothache, Sore throat. 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 - Present Medications Home Medications: Ambulatory Orders Medication Instructions Recorded Confirmed Albuterol Sulfate [Proventil Hfa 1 - 2 puffs IH Q4H PRN #1 09/24/17 Inhaler] hfa.aer.ad Doxycycline Hyclate 100 mg PO BID #14 tablet 09/24/17 guaiFENesin/CODEINE [Robitussin AC] 5 - 10 ml PO Q6H PRN #120 ml 09/24/17 predniSONE [Deltasone] 60 mg PO DAILY 5 Days tablet 09/24/17 Cefdinir 300 mg PO BID #20 capsule 04/15/19 Ondansetron Odt [Zofran] 4 mg TL Q6H PRN #10 tablet 04/15/19 Neomycin/Polymyx/Hc Otic Drops 4 drops EACHEAR QID #1 bottle 11/24/19 [Cortisporin Ear Susp] Ibuprofen [Motrin] 600 mg PO Q6H PRN #30 tab 12/14/19 - Allergies Allergies/Adverse Reactions: Allergies Allergy/AdvReac Type Severity Reaction Status Date / Time No Known Drug Allergies Allergy Verified 11/24/19 15:35 - Social History Does the pt smoke?: Yes Smoking Status: Current every day smoker Does the pt drink ETOH?: Yes Does the pt have substance abuse?: No - Immunizations Immunizations are current?: Yes - POLST Patient has POLST: No PD ED PE EXPANDED - General General: Alert, No acute distress - HEENT HEENT: Atraumatic, PERRL, EOMI, Ears normal (Bilateral ear canals and tympanic membranes intact without fluid bulge erythema or drainage.), Moist mucous membranes, Pharynx normal, Dental decay (Minor dental caries throughout the mouth. No gumline swelling or fluctuance). No: Dry mucous membranes, Pharyngeal erythema, Swollen tonsils, Tonsillar exudate, Soft palate petecchiae, [employer]IED NETWORK ASSOCIATE - Neck Neck: Supple w/out meningeal sx. No: Adenopathy, Thyroid enlarged / mass - Cardiac Cardiac: Regular Rate, Radial strong equal - Respiratory Respiratory: Clear to ausultation cole. No: Distress, Labored Results - Vitals Vitals: Vital Signs - 24 hr 12/14/19 11:00 Temperature 37 C Heart Rate 83 Respiratory 16 Rate Blood Pressure 109/76 O2 Saturation 98 Oxygen O2 Source Room air - Labs Labs: Laboratory Tests 12/14/19 11:44 Group A Strep Rapid Negative PD MEDICAL DECISION MAKING - ED course Complexity details: reviewed results, d/w patient, d/w family ED course: 39-year-old female here with 4 to 5 days of acute bilateral ear pain and sore throat. - Rapid strep is Negative. She also has no fever or exudate no signs of [employer] C[employer]IED NETWORK ASSOCIATE or RPA. Will defer strep culture. - She does have bilateral ear pain however both ear canals and TMs are intact without fluid. Given the symptom of a minor sore throat and ear pain I suspect that she may have eustachian tube dysfunction bilaterally versus mild viral URI. She decliens COVID 19 screening. I recommend that she gargle with warm water warm salt water 3 times a day and trial Benadryl or Sudafed to help clear the eustachian tubes. - Return to the emergency department for fevers, ear pain, inability to swallow, abnormal phonation, or she develops tonsillar exudate. Departure - Departure Disposition: 01 Home, Self Care Clinical Impression: Sore throat (viral), Acute pain of both ears Condition: Stable Instructions: ED Pharyngitis Viral, ED Obstruction Eustachian Tube Ch Prescriptions: Ibuprofen [Motrin] 600 mg PO Q6H PRN #30 tab PRN Reason: Pain Comments: I hope you feel better soon. Both of your ears look normal. You do not have signs of infection behind the eardrum or ear canal. Your strep testing today is negative. I suspect that you have a mild pharyngitis or sore throat due to a virus. This may be causing both of eustachian tubes to be plugged. Gargle with warm salt water 2-3 times a day. You may also try an [id number] decongestant or some Benadryl at night. This may unblock eustachian tubes return to the emergency department if you have fevers, ear drainage, or are unable to speak or swallow normally.
[2019-12-14 12:30] VITALS: BP 110/87
== END 2019-12-14 12:30 | disposition home or self-care (01) ==
LOC: ED 10:45
DX: J02.9 Acute pharyngitis, unspecified (principal); H92.03 Otalgia, bilateral; F17.200 Nicotine dependence, unspecified, uncomplicated
CPT/HCPCS: 87070; 87430; 99283; 99284

== ENCOUNTER 2020-10-15 16:14 | Emergency (ER) | payer MEDICAID ==
[2020-10-15 16:20] VITALS: BP 170/76
[2020-10-15] MEDS ORDERED: AMOX/CLAV 875 MG/125 MG TABLET PO STA (16:32)
[2020-10-15] MEDS ORDERED: HYDROmorphone 2 MG/ML VIAL IM STA (16:32)
--- NOTE | 2020-10-15 16:35 | ED Physician Documentation ---
History of Present Illness - Stated complaint Stated Complaint: L SIDE TOOTH PAIN - Chief complaint Chief Complaint: Heent - Additonal information Additional information: 40-year-old female presents emergency department for evaluation of now 3 days of left upper molar pain. Pain began 2 days ago but was tolerable and became acutely worse today. She has her posterior molars all missing and rotted to the gumline. She has been unable to follow-up with a dentist secondary to Covid and has been seen in this ER for similar in the past. No fevers, no trismus no dysphonia. Normal swallow. 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 - Present Medications Home Medications: Ambulatory Orders Medication Instructions Recorded Confirmed Albuterol Sulfate [Proventil Hfa 1 - 2 puffs IH Q4H PRN #1 09/24/17 Inhaler] hfa.aer.ad Doxycycline Hyclate 100 mg PO BID #14 tablet 09/24/17 guaiFENesin/CODEINE [Robitussin AC] 5 - 10 ml PO Q6H PRN #120 ml 09/24/17 predniSONE [Deltasone] 60 mg PO DAILY 5 Days tablet 09/24/17 Cefdinir 300 mg PO BID #20 capsule 04/15/19 Ondansetron Odt [Zofran] 4 mg TL Q6H PRN #10 tablet 04/15/19 Neomycin/Polymyx/Hc Otic Drops 4 drops EACHEAR QID #1 bottle 11/24/19 [Cortisporin Ear Susp] Ibuprofen [Motrin] 600 mg PO Q6H PRN #30 tab 12/14/19 Amox/Clav 875/125 [Augmentin] 1 each PO Q12H #20 tablet 10/15/20 HYDROcod/ACETAM 5/325 [[place] 5/325] 1 tab PO BID PRN #7 tablet 10/15/20 Ibuprofen [Motrin] 600 mg PO Q6H PRN #30 tab 10/15/20 - Allergies Allergies/Adverse Reactions: Allergies Allergy/AdvReac Type Severity Reaction Status Date / Time No Known Drug Allergies Allergy Verified 10/15/20 16:17 - Social History Does the pt smoke?: Yes Smoking Status: Current every day smoker Does the pt drink ETOH?: Yes Does the pt have substance abuse?: No - Immunizations Immunizations are current?: Yes - POLST Patient has POLST: No PD ED PE EXPANDED - General General: Alert, In Pain - HEENT HEENT: PERRL, EOMI, Moist mucous membranes, Pharynx normal, Dental decay, Dental abscess (Left upper posterior molars all rotted and missing to the gumline. There are some generalized gumline erythema. No fluctuance. The teeth that remain are quite tender to the touch.). No: Dentition normal, Dental trauma, Dental TTP Results - Vitals Vitals: Vital Signs - 24 hr 10/15/20 16:17 Temperature 36.8 C Heart Rate 66 Respiratory 16 Rate Blood Pressure 170/76 H O2 Saturation 100 Oxygen O2 Source Room air PD MEDICAL DECISION MAKING - ED course Complexity details: reviewed results, re-evaluated patient, d/w patient ED course: 40-year-old female presents emergency department for evaluation of 3 days acute left upper molar pain in the setting of significant dental decay and disease in this region. She has significant tenderness to even light palpation and moderate gumline swelling and erythema. I suspect that she is developing an apical infection. There is no fever trismus or dysphonia. No facial swelling. We will start her empirically on Augmentin. Recommend ibuprofen will prescribe 5 [place] tablets for severe pain only. Emergent return precautions discussed. Departure - Departure Disposition: 01 Home, Self Care Clinical Impression: Dentalgia, Dental decay Condition: Stable Record reviewed to determine appropriate education?: Yes Instructions: ED Cavity Dental Prescriptions: Amox/Clav 875/125 [Augmentin] 1 each PO Q12H #20 tablet Ibuprofen [Motrin] 600 mg PO Q6H PRN #30 tab PRN Reason: Pain HYDROcod/ACETAM 5/325 [[place] 5/325] 1 tab PO BID PRN #7 tablet PRN Reason: Pain Comments: Luanne you have significant dental decay in your left upper mouth. You are likely developing an early abscess this is why it hurts so much. I have given you your first dose of antibiotic here in the emergency department. Please fill the prescription and begin taking twice daily as directed. Please rinse your mouth with warm salt water 3 times a day. In general I like you to take ibuprofen with food 3 times a day for discomfort. For severe pain only I have prescribed a very limited amount of hydrocodone. Do not drive if taking this medication it will legally intoxicated you. [facility] does have dental clinic walk-in availability. I do recommend that you call the clinics to see if you can see them sooner if you are unable to follow-up within 1 to 2 weeks at [place].
== END 2020-10-15 16:53 | disposition home or self-care (01) ==
LOC: ED 16:14
DX: K08.89 Other specified disorders of teeth and supporting structures (principal); K02.9 Dental caries, unspecified; F17.200 Nicotine dependence, unspecified, uncomplicated
CPT/HCPCS: 96372; 99283; A9270; J1170

== ENCOUNTER 2020-11-08 19:57 | Emergency (ER) | payer MEDICAID ==
--- OUTSIDE RECORDS SUMMARY | 2020-11-08 20:01 | EXTERNAL MEDICAL SUMMARY RPT | Continuity of Care Document ---
:1980 Demographics Phone Unavailable Preferred Language Unknown Marital Status Unknown Congregational Affiliation Unknown Race Unknown Ethnic Group Unknown Author Organization [facility] Address [address] [phone] Phone Allergies Encounters Medications Problems Results
--- OUTSIDE RECORDS SUMMARY | 2020-11-08 20:07 | EXTERNAL MEDICAL SUMMARY RPT | Continuity of Care Document ---
:1980 Demographics Phone Unavailable Preferred Language Unknown Marital Status Unknown Uatsdin Affiliation Unknown Race Unknown Ethnic Group Unknown Author Organization [facility] Address [address] [phone] Phone Allergies Encounters Medications Problems Results
[2020-11-08] MEDS ORDERED: oxyCODONE/ACET 5/325 Prepack 4 PO STA (21:18)
[2020-11-08] MEDS ORDERED: AMOX/CLAV 875 MG/125 MG TABLET PO STA (21:18)
--- NOTE | 2020-11-08 21:20 | ED Physician Documentation ---
History of Present Illness - Stated complaint Stated Complaint: MOUTH SWELLING - Chief complaint Chief Complaint: Heent - Additonal information Additional information: 40-year-old female return to the emergency department for evaluation of acute left upper mouth pain. She was seen by me for similar just over 1 month ago. At that time she was noted to have the left upper posterior molars missing and rotted to the gumline. She was started on Augmentin and advised close follow-up with a dentist. Her dental appointment is scheduled for tomorrow at 115pm in [place]. She reports that after starting the first course of antibiotics her symptoms dissipated until beginning again 3 days ago. She now has a small area of swelling on the lateral upper gumline. No fevers. No trismus.40-year-old female return to the emergency department for evaluation of acute left upper mouth pain. She was seen by me for similar just over 1 month ago. At that time she was noted to have the left upper posterior molars missing and rotted to the gumline. She was started on Augmentin and advised close follow-up with a dentist. Her dental appointment is scheduled for tomorrow at 115 in [place]. She reports that after starting the first course of antibiotics her symptoms dissipated until beginning again 3 days ago. She now has a small area of swelling on the lateral upper gumline. No fevers. No trismus. 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 - Present Medications Home Medications: Ambulatory Orders Medication Instructions Recorded Confirmed Albuterol Sulfate [Proventil Hfa 1 - 2 puffs IH Q4H PRN #1 09/24/17 Inhaler] hfa.aer.ad Doxycycline Hyclate 100 mg PO BID #14 tablet 09/24/17 guaiFENesin/CODEINE [Robitussin AC] 5 - 10 ml PO Q6H PRN #120 ml 09/24/17 predniSONE [Deltasone] 60 mg PO DAILY 5 Days tablet 09/24/17 Cefdinir 300 mg PO BID #20 capsule 04/15/19 Ondansetron Odt [Zofran] 4 mg TL Q6H PRN #10 tablet 04/15/19 Neomycin/Polymyx/Hc Otic Drops 4 drops EACHEAR QID #1 bottle 11/24/19 [Cortisporin Ear Susp] Ibuprofen [Motrin] 600 mg PO Q6H PRN #30 tab 12/14/19 Amox/Clav 875/125 [Augmentin] 1 each PO Q12H #20 tablet 10/15/20 HYDROcod/ACETAM 5/325 [[place] 5/325] 1 tab PO BID PRN #7 tablet 10/15/20 Ibuprofen [Motrin] 600 mg PO Q6H PRN #30 tab 10/15/20 Amox/Clav 875/125 [Augmentin] 1 each PO Q12H #20 tablet 11/08/20 - Allergies Allergies/Adverse Reactions: Allergies Allergy/AdvReac Type Severity Reaction Status Date / Time No Known Drug Allergies Allergy Verified 11/08/20 20:17 - Social History Does the pt smoke?: Yes Smoking Status: Current every day smoker Does the pt drink ETOH?: Yes Does the pt have substance abuse?: No - Immunizations Immunizations are current?: Yes - POLST Patient has POLST: No PD ED PE EXPANDED - General General: Alert, In Pain - HEENT HEENT: Atraumatic, Ears normal, Dental decay, Dental abscess (left upper lateral gum line with muld swelling and fluctuance) - Neck Neck: Supple w/out meningeal sx. No: Adenopathy Results - Vitals Vitals: Vital Signs - 24 hr 11/08/20 20:13 Temperature 35.9 C L Heart Rate 59 L Respiratory 14 Rate Blood Pressure 115/87 H O2 Saturation 100 Oxygen O2 Source Room air PD MEDICAL DECISION MAKING - ED course Complexity details: reviewed results, re-evaluated patient, d/w patient, d/w family ED course: 40 year old female presents to the ED with 3 days of acute left upper jaw pain with now mild fluctuance and swelling. She does have pre-existing dental decay and disease there. She does have an obvious mild abscess but patient prefers the dentist that she sees tomorrow to incise and drain this which I think is a reasonable option. Patient will be started on a course of Augmentin and I will give her Percocet prepack to leave the emergency department tonight with to help with pain control. She is advised to continue warm salt water rinses. Emergent return precautions discussed. I am prescribing a short course of short-acting opioid pain medication for this patient. 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 I have discussed that the opioids are for short term therapy only, and will not be refilled from the ED. Departure - Departure Disposition: 01 Home, Self Care Clinical Impression: Dental abscess Condition: Stable Record reviewed to determine appropriate education?: Yes Instructions: ED Abscess Dental Prescriptions: Amox/Clav 875/125 [Augmentin] 1 each PO Q12H #20 tablet Comments: Luanne you were given your first dose of antibiotic tonight in the ER. Please fill the prescription tomorrow and begin taking as directed. You do have an abscess of the decayed teeth in your left upper jaw. Do not miss the dental appointment with your dentist tomorrow. It is not likely that he will be able to extract any of your teeth but he should be able to open the abscess to allow drainage. I have given you a limited amount of Percocet from the emergency department tonight to help with acute pain control. I am prescribing a short course of narcotic pain medication for you. These are potentially dangerous and addictive medications that should be used carefully. These medications may constipate you. Take an tevk-luk-wgmjair stool softener (docusate) twice daily with plenty of water while taking these medications. If you go 24 hours without a bowel movement, take pghw-kec-rigftbj miralax, per package instructions. Do not drink or drive while taking these medications. If you received narcotic or sedating medications while in the emergency department, do not drive for 24 hours. Store this medication in a safe, secure place and out of reach of children. It is a violation of federal law to give or sell this medication to another person or to use in a manner other than prescribed. The ED will not refill narcotic prescriptions, including prescriptions lost or stolen. To dispose of unwanted medications: 1. [facility] [address] [facility] [facility] [place] has a medication drop box. They accept prescription medications (in pill form) Friday through Friday 9:00 a.m. to 5:00 p.m. 2. The [facility] accepts prescription medications (in pill form only) for disposal year round. Call for more information. 3. Contact the [facility] for the next [facility] sponsored prescription drug collection event. , [phone], or [phone]; Note that many narcotic pain relievers also contain Tylenol/acetaminophen. Please ensure that your total dose of acetaminophen from all sources does not exceed 3 g (3000 mg) per day. Return to the emergency department if you are unable to open your mouth fully, you develop fevers cannot tolerate or swallow your oral secretions or have severe facial swelling.
[2020-11-08 21:34] VITALS: BP 128/94
== END 2020-11-08 21:34 | disposition home or self-care (01) ==
LOC: ED 19:57
DX: K04.7 Periapical abscess without sinus (principal); K02.9 Dental caries, unspecified; F17.200 Nicotine dependence, unspecified, uncomplicated
CPT/HCPCS: 99282; 99283; A9270

== ENCOUNTER 2020-11-20 19:36 | Emergency (ER) | payer MEDICAID ==
--- OUTSIDE RECORDS SUMMARY | 2020-11-20 19:40 | EXTERNAL MEDICAL SUMMARY RPT | Continuity of Care Document ---
:1980 Demographics Phone Unavailable Preferred Language Unknown Marital Status Unknown Jew Affiliation Unknown Race Unknown Ethnic Group Unknown Author Organization [place] Address [address] [phone] Phone Allergies Encounters Medications Problems Results
--- NOTE | 2020-11-20 19:55 | ED Physician Documentation ---
PD HPI URI - Stated complaint Stated Complaint: CHEST PX/COUGH/VOMITING - Chief complaint Chief Complaint: Resp - History obtained from History obtained from: Patient - History of Present Illness Timing - onset: Yesterday Timing duration: Days (2) Timing details: Gradual onset, Still present Associated symptoms: Fever, Nasal congestion, Dry cough, Chest pain, Dyspnea Contributing factors: Unimmunized Improves by: Rest, Medication Worsened by: Activity, Breathing Similar symptoms before: Diagnosis (bronchitis) Recently seen: Not recently seen - Additional information Additional information: Previously well 40-year-old female who is unimmunized against Covid has developed a fever and cough beginning yesterday and she has now developed some shortness of breath and chest pain and when she had a coughing paroxysm and vomited the day she has come to the emergency department for evaluation. Review of Systems Constitutional: reports: Fever Eyes: reports: Other (pain behind eyes). denies: Decreased vision Ears: reports: Loss of hearing (right ear muffled hearing) Nose: reports: Congestion. denies: Rhinorrhea / runny nose Throat: reports: Sore throat (from coughing) Cardiac: reports: Chest pain / pressure. denies: Palpitations, Pedal edema, Calf pain Respiratory: reports: Dyspnea, Cough GI: reports: Vomiting. 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 - Present Medications Home Medications: Ambulatory Orders Medication Instructions Recorded Confirmed Albuterol Sulfate [Proventil Hfa 1 - 2 puffs IH Q4H PRN #1 09/24/17 Inhaler] hfa.aer.ad Doxycycline Hyclate 100 mg PO BID #14 tablet 09/24/17 guaiFENesin/CODEINE [Robitussin AC] 5 - 10 ml PO Q6H PRN #120 ml 09/24/17 predniSONE [Deltasone] 60 mg PO DAILY 5 Days tablet 09/24/17 Cefdinir 300 mg PO BID #20 capsule 04/15/19 Ondansetron Odt [Zofran] 4 mg TL Q6H PRN #10 tablet 04/15/19 Neomycin/Polymyx/Hc Otic Drops 4 drops EACHEAR QID #1 bottle 11/24/19 [Cortisporin Ear Susp] Ibuprofen [Motrin] 600 mg PO Q6H PRN #30 tab 12/14/19 Amox/Clav 875/125 [Augmentin] 1 each PO Q12H #20 tablet 10/15/20 HYDROcod/ACETAM 5/325 [[place] 5/325] 1 tab PO BID PRN #7 tablet 10/15/20 Ibuprofen [Motrin] 600 mg PO Q6H PRN #30 tab 10/15/20 Amox/Clav 875/125 [Augmentin] 1 each PO Q12H #20 tablet 11/08/20 Albuterol Sulf [Ventolin Hfa 1 - 2 puffs INH Q4HR PRN #1 inhaler 11/20/20 Inhaler] Amox/Clav 875/125 [Augmentin] 1 each PO Q12H #20 tablet 11/20/20 - Allergies Allergies/Adverse Reactions: Allergies Allergy/AdvReac Type Severity Reaction Status Date / Time No Known Drug Allergies Allergy Verified 11/20/20 19:47 - Social History Does the pt smoke?: Yes Smoking Status: Current every day smoker Does the pt drink ETOH?: Yes Does the pt have substance abuse?: No - Immunizations Immunizations are current?: Yes - POLST Patient has POLST: No PD ED PE NORMAL - Vitals Vital signs reviewed: Yes (hypertensive) - General General: Alert and oriented X 3, No acute distress, Well developed/nourished - HEENT HEENT: Atraumatic, PERRL, EOMI, Pharynx benign, Other (Right TM is clear the left is inflamed with indistinct landmarks. ) - Neck Neck: Supple, no meningeal sign, No bony TTP - Cardiac Cardiac: RRR, No murmur - Respiratory Respiratory: No respiratory distress, Other (diminished breath sounds with scattered wheeze. ) - Abdomen Abdomen: Soft, Non tender - Back Back: No CVA TTP, No spinal TTP - Derm Derm: Normal color, Warm and dry, No rash - Extremities Extremities: No deformity, No edema - Neuro Neuro: Alert and oriented X 3, check totaler 2-12 intact, No motor deficit, No sensory deficit, Normal speech Eye Opening: Spontaneous Motor: Obeys Commands Verbal: Oriented GCS Score: 15 - Psych Psych: Normal mood, Normal affect Results - Vitals Vitals: Vital Signs - 24 hr 11/20/20 11/20/20 19:41 20:35 Temperature 36.4 C L Heart Rate 82 84 Respiratory 24 20 Rate Blood Pressure 141/80 H O2 Saturation 99 Oxygen O2 Source Room air - EKG (time done) 1946 Rate: Rate (enter#) (86) Rhythm: NSR Intervals: Normal IL QRS: Normal Ischemia: Normal ST segments Compare to prior EKG: Unchanged from prior EKG (SPT 18 no changes) Computer interpretation: Agree with computer - Labs Labs: Laboratory Tests 11/20/20 21:25 Nasal Adenovirus (PCR) NOT DETECTED Nasal B. parapertussis DNA (PCR) NOT DETECTED Nasal Coronavir 229E PCR NOT DETECTED Nasal Coronavir HKU1 PCR NOT DETECTED Nasal Coronavir NL63 PCR NOT DETECTED Nasal Coronavir OC43 PCR NOT DETECTED Nasal Enterovir/Rhinovir PCR DETECTED A Nasal Influenza B PCR NOT DETECTED Nasal Influenza A PCR NOT DETECTED Nasal Parainfluen 1 PCR NOT DETECTED Nasal Parainfluen 2 PCR NOT DETECTED Nasal Parainfluen 3 PCR NOT DETECTED Nasal Parainfluen 4 PCR NOT DETECTED Nasal RSV (PCR) NOT DETECTED Nasal B.pertussis DNA PCR NOT DETECTED Nasal C.pneumoniae (PCR) NOT DETECTED [place] Human Metapneumo PCR NOT DETECTED Nasal M.pneumoniae (PCR) NOT DETECTED Nasal SARS-CoV-2 (PCR) NOT DETECTED PD MEDICAL DECISION MAKING - ED course Complexity details: reviewed results, re-evaluated patient, considered differential, d/w patient, d/w family ED course: 40-year-old female with cough congestion that started yesterday has enterovirus is rhinovirus on her PCR and she has a complication with this as left otitis media. She has a history of reactive airway disease and has some bronchospasm associated with this as well she is administered a dose of dexamethasone and given a DuoNeb treatment and we will place her on a course of antibiotic for the otitis and administer an inhaler. Departure - Departure Disposition: 01 Home, Self Care Clinical Impression: Otitis media, Rhinovirus infection Reactive airway disease Qualifiers: Asthma severity: mild Asthma persistence: intermittent Asthma complication type: with acute exacerbation Qualified Code(s): J45.21 - Mild intermittent asthma with (acute) exacerbation Condition: Stable Instructions: ED Reactive Airway Disease, Cold Virus, ED Otitis Media Acute Adult Follow-Up: JERICHO PECK ARNP [Primary Care Provider] - Prescriptions: Albuterol Sulf [Ventolin Hfa Inhaler] 1 - 2 puffs INH Q4HR PRN #1 inhaler PRN Reason: Shortness Of Air/Wheezing Amox/Clav 875/125 [Augmentin] 1 each PO Q12H #20 tablet
--- OUTSIDE RECORDS SUMMARY | 2020-11-20 20:10 | EXTERNAL MEDICAL SUMMARY RPT | Continuity of Care Document ---
:1980 Demographics Phone Unavailable Preferred Language Unknown Marital Status Unknown Taoist Affiliation Unknown Race Unknown Ethnic Group Unknown Author Organization [place] Address [address] [phone] Phone Allergies Encounters Medications Problems Results
[2020-11-20] MEDS ORDERED: CHERRY SYRUP 10 ML UDC PO ONE (20:12)
[2020-11-20] MEDS ORDERED: DEXAMETHASONE 10 MG/ML VIAL PO STA (20:12)
[2020-11-20] MEDS ORDERED: IPRATROPIUM/ALBUTEROL 3 ML NEB INH STA (20:15)
[2020-11-20] MEDS ORDERED: PROPOFOL 200 MG/20 ML VIAL IVP STA (20:29)
--- NOTE | 2020-11-20 21:32 | XRAY Report ---
PROCEDURE: Chest 1 View X-Ray INDICATIONS: chest pain, cough SOA TECHNIQUE: One view of the chest was acquired. COMPARISON: None. FINDINGS: Surgical changes and devices: None. Lungs and pleura: No pleural effusions or pneumothorax. Lungs are clear. Mediastinum: Mediastinal contours appear normal. Heart size is normal. Bones and chest wall: No suspicious bony lesions. Overlying soft tissues appear unremarkable. IMPRESSION: 1. No acute cardiopulmonary disease. Reviewed by: Jaime Mohr MD on 11/20/2020 9:30 PM PDT Approved by: Jaime Mohr MD on 11/20/2020 9:30 PM PDT Station ID: [id number]
[2020-11-20 22:23] LABS: B. PARAPERTUSSIS- RESP PCR PAN NOT DETECTED; B. PERTUSSIS- RESP PCR PANEL NOT DETECTED; C. PNEUMONIAE- RESP PCR PANEL NOT DETECTED; CORONAVIRUS 229E-RESP PCR NOT DETECTED; CORONAVIRUS HKU1-RESP PCR NOT DETECTED; CORONAVIRUS NL63-RESP PCR NOT DETECTED; CORONAVIRUS OC43-RESP PCR NOT DETECTED; HUMAN METAPNEUMOVIRUS NOT DETECTED; INFLUENZA A- RESP PCR PANEL NOT DETECTED; INFLUENZA B - RESP PCR PANEL NOT DETECTED; M. PNEUMONIAE- RESP PCR PANEL NOT DETECTED; PARAINFLUENZA VIRUS 1 NOT DETECTED; PARAINFLUENZA VIRUS 2 NOT DETECTED; PARAINFLUENZA VIRUS 3 NOT DETECTED; PARAINFLUENZA VIRUS 4 NOT DETECTED; RHINOVIRUS/ENTEROVIRUS DETECTED; RSV- RESP PCR PANEL NOT DETECTED; SARS-CoV-2 -RESP PCR PANEL NOT DETECTED
[2020-11-20] MEDS ORDERED: ACETAMINOPHEN 325 MG TABLET PO STA (22:36)
[2020-11-20] MEDS ORDERED: AMOX/CLAV 875 MG/125 MG TABLET PO STA (22:42)
[2020-11-20 22:52] VITALS: BP 125/78
== END 2020-11-20 22:54 | disposition home or self-care (01) ==
LOC: ED 19:36
DX: H66.92 Otitis media, unspecified, left ear (principal); J00 Acute nasopharyngitis [common cold]; B97.89 Other viral agents as the cause of diseases classified elsewhere; J45.21 Mild intermittent asthma with (acute) exacerbation; R07.9 Chest pain, unspecified; Z20.822 Contact with and (suspected) exposure to COVID-19; F17.200 Nicotine dependence, unspecified, uncomplicated
CPT/HCPCS: 0202U; 71045; 94640; 99284; A9270

== ENCOUNTER 2021-07-22 08:38 | Emergency (ER) | payer MEDICAID ==
--- NOTE | 2021-07-22 09:12 | ED Physician Documentation ---
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 - Present Medications Home Medications: Ambulatory Orders Medication Instructions Recorded Confirmed Albuterol Sulf [Ventolin Hfa 2 - 3 puffs INH QID 10 Days #1 07/22/21 Inhaler] inhaler HYDROcod/ACETAM 5/325 [[place] 5/325] 1 ea PO Q6H PRN #12 tablet 07/22/21 Ondansetron Odt [Zofran] 4 mg TL Q6H PRN #10 tablet 07/22/21 dexAMETHasone [Decadron] 4 mg PO DAILY #5 tablet 07/22/21 - Allergies Allergies/Adverse Reactions: Allergies Allergy/AdvReac Type Severity Reaction Status Date / Time No Known Drug Allergies Allergy Verified 07/22/21 08:42 - Social History Does the pt smoke?: No Smoking Status: Former smoker Does the pt drink ETOH?: No Does the pt have substance abuse?: No - Immunizations Immunizations are current?: Yes - POLST Patient has POLST: No PD ED PE NORMAL - Vitals Vital signs reviewed: Yes - General General: Alert and oriented X 3, No acute distress, Well developed/nourished - HEENT HEENT: Ears normal, Moist mucous membranes, Pharynx benign - Neck Neck: Supple, no meningeal sign, No adenopathy - Cardiac Cardiac: RRR, No murmur - Respiratory Respiratory: Clear bilaterally - Abdomen Abdomen: Soft, Non tender - Derm Derm: Normal color, Warm and dry, No rash - Extremities Extremities: No edema, No calf tenderness / cord - Neuro Neuro: Alert and oriented X 3, No motor deficit, No sensory deficit, Normal speech Results - Vitals Vitals: Vital Signs - 24 hr 07/22/21 07/22/21 07/22/21 08:43 09:43 09:55 Temperature 36.8 C Heart Rate 76 80 84 Respiratory 20 18 18 Rate Blood Pressure 120/92 H 151/102 H O2 Saturation 98 95 Oxygen O2 Source Room air PD MEDICAL DECISION MAKING - ED course Complexity details: considered differential (URI with exposure to COVID. Has markedly sore throat, body aches, and chestwall pain with coughing. I felt it reasonable for short course of opiois pain meds. ), d/w patient Departure - Departure Disposition: 01 Home, Self Care Clinical Impression: Exposure to COVID-19 virus Upper respiratory infection Qualifiers: URI type: unspecified URI Qualified Code(s): J06.9 - Acute upper respiratory infection, unspecified Condition: Stable Record reviewed to determine appropriate education?: Yes Instructions: ED URI Viral W Wheezing Prescriptions: dexAMETHasone [Decadron] 4 mg PO DAILY #5 tablet HYDROcod/ACETAM 5/325 [[place] 5/325] 1 ea PO Q6H PRN #12 tablet PRN Reason: Pain Albuterol Sulf [Ventolin Hfa Inhaler] 2 - 3 puffs INH QID 10 Days #1 inhaler Ondansetron Odt [Zofran] 4 mg TL Q6H PRN #10 tablet PRN Reason: Nausea / Vomiting Comments: Stay well-hydrated with frequent fluids. Good nutrition. At home off work for the next 2 to 3 days due to illness and pending your Covid results. Use the albuterol inhaler 2 to 3 puffs 4 times a day regularly for the next week or so. Use it extra times as needed for cough and wheezing. Decadron steroid daily for the next 5 days for inflammation of the airways to help reduce cough and improve breathing. Use ondansetron if needed for nausea. Tylenol every 4-6 hours if needed for pains or hydrocodone if needed for worse pain. I would anticipate improvement over the next several days but you may have some cough and trouble breathing for couple of weeks for remaining. I transmitted your prescriptions to [facility] in [place]. You have a Covid test pending. You need to self quarantine until the result is done and negative. Do not leave your house. Do not get near anybody. The results should be done in 48 to 72 hours, but sometimes longer. We will call with a positive result, the fastest way to get a negative result for confirmation though is to go to the hospital website at [email or web address], click on the my [facility] tab and sign up for the patient portal. If any friends or family get sick and would like to have a Covid test done, but do not have signs or symptoms that would necessitate being hospitalized, we encourage testing throughone of the local pharmacies or the Health Department. Call them to schedule an appointment. I am prescribing a short course of narcotic pain medication for you. These are potentially dangerous and addictive medications that should be used carefully. These medications may constipate you. Take an aofp-ybj-qozejop stool softener such as docusate twice daily with plenty of water while taking these medications. If you go 24 hours without a bowel movement, take clwq-crb-liilnrq MiraLAX, per package instructions. Do not drink or drive while taking these medications. If you received narcotic or sedating medications while in the emergency department do not drive for 24 hours. Store this medication in a safe, secure place and out of reach of children. It is a violation of federal law to give or sell this medication to another person or to use in a manner other than prescribed. The ED will not refill narcotic prescriptions, including prescriptions lost or stolen. You can dispose of unwanted medications at the [facility]'s office or at several pharmacies such as [facility]. Forms: Activity restrictions Discharge Date/Time: 07/22/21 10:08
[2021-07-22] MEDS ORDERED: BENZONATATE 100 MG CAPSULE PO STA (09:13)
[2021-07-22] MEDS ORDERED: ALBUTEROL 1 PUFF INH STA (09:13)
[2021-07-22] MEDS ORDERED: HYDROcod/ACETAM 5/325 MG TABLET PO STA (09:13)
[2021-07-22] MEDS ORDERED: ONDANSETRON ODT 4 MG TABLET TL STA (09:13)
[2021-07-22 10:01] VITALS: BP 151/102
== END 2021-07-22 10:08 | disposition home or self-care (01) ==
LOC: ED 08:38
DX: U07.1 COVID-19 (principal); J06.9 Acute upper respiratory infection, unspecified; Z87.891 Personal history of nicotine dependence
CPT/HCPCS: 87635; 94640; 94664; 99281; 99284; A9270; Q0162

== ENCOUNTER 2023-10-03 17:41 | Emergency (ER) | payer MEDICAID, OTHER ==
[2023-10-03 17:55] VITALS: O2SAT 99
[2023-10-03 17:57] LABS: BILIRUBIN,URINE NEGATIVE (NEGATIVE); GLUCOSE, URINE (UA) NEGATIVE (NEGATIVE); KETONES,URINE (UA) NEGATIVE (NEGATIVE); LEUKOCYTE ESTERASE, URINE NEGATIVE (NEGATIVE); NITRITE,URINE NEGATIVE (NEGATIVE); OCCULT BLOOD,URINE NEGATIVE (NEGATIVE); PROTEIN,URINE NEGATIVE (NEGATIVE); UROBILINOGEN,URINE 0.2 (NORMAL) E.U./dL (NORMAL)
[2023-10-03 17:58] LABS: CLARITY,URINE CLEAR (CLEAR)
[2023-10-03 18:00] LABS: BASOPHILS # (AUTO) 0.1 10^3/uL (0.0-0.1); BASOPHILS % (AUTO) 0.6 %; EOSINOPHILS # (AUTO) 0.1 10^3/uL (0.0-0.7); EOSINOPHILS % (AUTO) 1.3 %; HCT - HEMATOCRIT 41.8 % (37.0-47.0); HGB - HEMOGLOBIN 13.5 g/dL (12.0-16.0); LYMPHOCYTES # (AUTO) 1.3 10^3/uL (1.5-3.5); LYMPHOCYTES % (AUTO) 13.3 %; MEAN CORPUSCULAR HEMOGLOBIN 27.4 pg (27.0-31.0); MEAN CORPUSCULAR HGB CONC 32.3 g/dL (32.0-36.0); MONOCYTES # (AUTO) 0.7 10^3/uL (0.0-1.0); MONOCYTES % (AUTO) 7.3 %; NEUTROPHILS # (AUTO) 7.5 10^3/uL (1.5-6.6); NEUTROPHILS % (AUTO) 77.3 %; PLT - PLATELET COUNT 298 10^3/uL (130-450); RED BLOOD COUNT 4.92 10^6/uL (4.20-5.40); WHITE BLOOD COUNT 9.6 x10^3/uL (4.8-10.8)
[2023-10-03 18:13] LABS: ALBUMIN 4.3 g/dL (3.2-5.5); ALBUMIN/GLOBULIN RATIO 1.6 (1.0-2.2); BILIRUBIN,TOTAL 0.8 mg/dL (0.2-1.0); CALCIUM 9.4 mg/dL (8.5-10.3); CREATININE 0.6 mg/dL (0.6-1.3); POTASSIUM 4.1 mmol/L (3.5-4.5)
--- NOTE | 2023-10-03 20:15 | ED Physician Documentation ---
History of Present Illness - Stated complaint Stated Complaint: NAUSEA/[place]IV[place]/BODY ACHES - Chief complaint Chief Complaint: Abd Pain - History obtained from History obtained from: Patient - History of Present Illness Timing: Today Pain level max: 7 Pain level now: 7 - Additonal information Additional information: Patient is a 43-year-old female who presents to the emergency department complaint of generalized bodyaches today. Has had diarrhea since this morning. Has felt nauseated but no vomiting. No fevers. No chills. Nothing makes it better or worse. Has not taken anything for the pain. Denies any possibility of . No one else at home is sick. No recent travel. No recent antibiotics. No urinary symptoms. Review of Systems Constitutional: reports: Myalgias. denies: Fever, Chills Throat: denies: Sore throat Respiratory: denies: Cough GI: denies: Nausea, Vomiting Skin: denies: Rash Musculoskeletal: denies: Neck pain, Back pain Neurologic: denies: Headache PD PAST MEDICAL HISTORY - Past Medical History Past Medical History: Yes Cardiovascular: None Respiratory: Pneumonia Neuro: None Endocrine/Autoimmune: None GI: None METROLOGIST: None : None HEENT: None Psych: None Musculoskeletal: None Derm: None - Past Surgical History Past Surgical History: Yes General: Cholecystectomy /METROLOGIST: section, Tubal ligation - Present Medications Home Medications: Ambulatory Orders Medication Instructions Recorded Confirmed Albuterol Sulf [Ventolin Hfa 2 - 3 puffs INH QID 10 Days #1 07/22/21 Inhaler] inhaler HYDROcod/ACETAM 5/325 [Garrett 5/325] 1 ea PO Q6H PRN #12 tablet 07/22/21 Ondansetron Odt [Zofran] 4 mg TL Q6H PRN #10 tablet 07/22/21 dexAMETHasone [Decadron] 4 mg PO DAILY #5 tablet 07/22/21 Ibuprofen [Motrin] 800 mg PO Q8H PRN #30 tablet 10/03/23 Ondansetron Odt [Zofran] 4 mg TL Q6H PRN #10 tablet 10/03/23 - Allergies Allergies/Adverse Reactions: Allergies Allergy/AdvReac Type Severity Reaction Status Date / Time No Known Drug Allergies Allergy Verified 10/03/23 17:43 - Social History Does the pt smoke?: No Smoking Status: Never smoker Does the pt drink ETOH?: No Does the pt have substance abuse?: No - Immunizations Immunizations are current?: Yes - POLST Patient has POLST: No PD ED PE NORMAL - Vitals Vital signs reviewed: Yes - General General: Alert and oriented X 3, No acute distress - HEENT HEENT: PERRL, Ears normal, Moist mucous membranes, Pharynx benign - Neck Neck: Supple, no meningeal sign - Cardiac Cardiac: RRR, Strong equal pulses - Respiratory Respiratory: No respiratory distress, Clear bilaterally - Abdomen Abdomen: Soft, Non tender, Non distended - Back Back: No CVA TTP, No spinal TTP - Derm Derm: Warm and dry, No rash - Extremities Extremities: No edema - Neuro Neuro: Alert and oriented X 3, 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, No motor deficit, No sensory deficit Eye Opening: Spontaneous Motor: Obeys Commands Verbal: Oriented GCS Score: 15 - Psych Psych: Normal mood, Normal affect Results - Vitals Vitals: Vital Signs - 24 hr 10/03/23 10/03/23 17:43 20:49 Temperature 36.8 C Heart Rate 70 74 Respiratory 16 18 Rate Blood Pressure 121/60 123/77 O2 Saturation 99 99 Oxygen O2 Source Room air - Labs Labs: Laboratory Tests 10/03/23 10/03/23 10/03/23 17:47 17:55 17:55 WBC 9.6 RBC 4.92 Hgb 13.5 Hct 41.8 MCV 85.0 MCH 27.4 MCHC 32.3 RDW 14.0 Plt Count 298 MPV 9.0 Neut # (Auto) 7.5 H Lymph # (Auto) 1.3 L Harney # (Auto) 0.7 Eos # (Auto) 0.1 Baso # (Auto) 0.1 Absolute Nucleated RBC 0.00 Nucleated RBC % 0.0 Sodium 135 Potassium 4.1 Chloride 104 Carbon Dioxide 24 Anion Gap 7.0 BUN 11 Creatinine 0.6 Estimated GFR (MDRD) 109 Glucose 92 Calcium 9.4 Total Bilirubin 0.8 AST 11 ALT 15 Alkaline Phosphatase 70 Total Protein 7.0 Albumin 4.3 Globulin 2.7 Albumin/Globulin Ratio 1.6 Lipase 33 Urine Color YELLOW Urine Clarity CLEAR Urine pH 6.0 Ur Specific [place] 1.025 Urine Protein NEGATIVE Urine Glucose (UA) NEGATIVE Urine Ketones NEGATIVE Urine Occult Blood NEGATIVE Urine Nitrite NEGATIVE Urine Bilirubin NEGATIVE Urine Urobilinogen 0.2 (NORMAL) Ur Leukocyte Esterase NEGATIVE Ur Microscopic Review NOT INDICATED Urine Culture Comments NOT INDICATED Nasal Adenovirus (PCR) Nasal B. parapertussis DNA (PCR) Nasal Coronavir 229E PCR Nasal Coronavir HKU1 PCR Nasal Coronavir NL63 PCR Nasal Coronavir OC43 PCR Nasal Enterovir/Rhinovir PCR Nasal Influenza B PCR Nasal Influenza A PCR Nasal Parainfluen 1 PCR Nasal Parainfluen 2 PCR Nasal Parainfluen 3 PCR Nasal Parainfluen 4 PCR Nasal RSV (PCR) Nasal B.pertussis DNA PCR Nasal C.pneumoniae (PCR) [place] Human Metapneumo PCR Nasal M.pneumoniae (PCR) Nasal SARS-CoV-2 (PCR) 10/03/23 18:34 WBC RBC Hgb Hct MCV MCH MCHC RDW Plt Count MPV Neut # (Auto) Lymph # (Auto) Harney # (Auto) Eos # (Auto) Baso # (Auto) Absolute Nucleated RBC Nucleated RBC % Sodium Potassium Chloride Carbon Dioxide Anion Gap BUN Creatinine Estimated GFR (MDRD) Glucose Calcium Total Bilirubin AST ALT Alkaline Phosphatase Total Protein Albumin Globulin Albumin/Globulin Ratio Lipase Urine Color Urine Clarity Urine pH Ur Specific [place] Urine Protein Urine Glucose (UA) Urine Ketones Urine Occult Blood Urine Nitrite Urine Bilirubin Urine Urobilinogen Ur Leukocyte Esterase Ur Microscopic Review Urine Culture Comments Nasal Adenovirus (PCR) NOT DETECTED Nasal B. parapertussis DNA (PCR) NOT DETECTED Nasal Coronavir 229E PCR NOT DETECTED Nasal Coronavir HKU1 PCR NOT DETECTED Nasal Coronavir NL63 PCR NOT DETECTED Nasal Coronavir OC43 PCR NOT DETECTED Nasal Enterovir/Rhinovir PCR NOT DETECTED Nasal Influenza B PCR NOT DETECTED Nasal Influenza A PCR NOT DETECTED Nasal Parainfluen 1 PCR NOT DETECTED Nasal Parainfluen 2 PCR NOT DETECTED Nasal Parainfluen 3 PCR NOT DETECTED Nasal Parainfluen 4 PCR NOT DETECTED Nasal RSV (PCR) NOT DETECTED Nasal B.pertussis DNA PCR NOT DETECTED Nasal C.pneumoniae (PCR) NOT DETECTED [place] Human Metapneumo PCR NOT DETECTED Nasal M.pneumoniae (PCR) NOT DETECTED Nasal SARS-CoV-2 (PCR) NOT DETECTED PD Medical Decision Making - ED course Complexity details: reviewed results, re-evaluated patient, considered differential, d/w patient ED course: Patient is well-appearing, nontoxic. Afebrile. Given a dose of Zofran and tolerating p.o. without difficulty. Body aches improved with Tylenol and Motrin. Suspect viral syndrome. No meningeal signs. No evidence of encephalitis. No indication for lumbar puncture. Respiratory PCR is negative. Will continue supportive care and follow-up with her doctor for further care. Patient counseled regarding signs and symptoms for which I believe and urgent re-evaluation would be necessary. Patient with good understanding of and agreement to plan and is comfortable going home at this time This document was made in part using voice recognition software. While efforts are made to proofread this document, sound alike and grammatical errors may occur. Departure - Departure Disposition: 01 Home, Self Care Clinical Impression: Viral syndrome Condition: Good Instructions: ED Viral Syndrome Follow-Up: your,doctor in 1 week [Other] Prescriptions: Ibuprofen [Motrin] 800 mg PO Q8H PRN #30 tablet PRN Reason: PAIN &/OR FEVER Ondansetron Odt [Zofran] 4 mg TL Q6H PRN #10 tablet PRN Reason: Nausea / Vomiting Comments: You appear to have a viral syndrome. Make sure you are using Motrin and Tylenol as needed at home for pain. Drink plenty of fluids and rest. You may develop more symptoms over the next 24 to 48 hours. Please return if you worsen. Your laboratory testing does not show any acute abnormalities today. Your prescription was sent to [facility] in [place]. Forms: PCP List Discharge Date/Time: 10/03/23 21:22
[2023-10-03] MEDS: ACETAMINOPHEN 325 MG TABLET PO STA (20:18)
[2023-10-03] MEDS: ONDANSETRON ODT 4 MG TABLET TL STA (20:20)
[2023-10-03] MEDS: IBUPROFEN 800 MG TABLET PO STA (20:21)
[2023-10-03 20:28] LABS: B. PARAPERTUSSIS- RESP PCR PAN NOT DETECTED; B. PERTUSSIS- RESP PCR PANEL NOT DETECTED; C. PNEUMONIAE- RESP PCR PANEL NOT DETECTED; CORONAVIRUS 229E-RESP PCR NOT DETECTED; CORONAVIRUS HKU1-RESP PCR NOT DETECTED; CORONAVIRUS NL63-RESP PCR NOT DETECTED; CORONAVIRUS OC43-RESP PCR NOT DETECTED; HUMAN METAPNEUMOVIRUS NOT DETECTED; INFLUENZA A- RESP PCR PANEL NOT DETECTED; INFLUENZA B - RESP PCR PANEL NOT DETECTED; M. PNEUMONIAE- RESP PCR PANEL NOT DETECTED; PARAINFLUENZA VIRUS 1 NOT DETECTED; PARAINFLUENZA VIRUS 2 NOT DETECTED; PARAINFLUENZA VIRUS 3 NOT DETECTED; PARAINFLUENZA VIRUS 4 NOT DETECTED; RHINOVIRUS/ENTEROVIRUS NOT DETECTED; RSV- RESP PCR PANEL NOT DETECTED; SARS-CoV-2 -RESP PCR PANEL NOT DETECTED
[2023-10-03 20:57] VITALS: BP 123/77
[2023-10-03] MEDS: DROPERIDOL 5 MG/2 ML VIAL IM STA (20:59)
== END 2023-10-03 21:22 | disposition home or self-care (01) ==
LOC: ED 17:41
DX: B34.9 Viral infection, unspecified (principal)
CPT/HCPCS: 36415; 80053; 81003; 83690; 85025; 87633; 99283; 99284; A9270; Q0162; 81001; 87086